=== PATIENT | male | born 1945 | race Caucasian/White ===

== ENCOUNTER 2020-06-06 13:23 | Outpatient (CLI) | payer OTHER, SELFPAY ==
--- NOTE | ~2020-06-06 | MR_ITS ---
EXAMINATION: MR knee LT wo con DATE: 06/06/2020 14:33 INDICATION: Acute onset left knee pain one week post injury with audible pop TECHNIQUE: Magnetic resonance imaging (MRI) of the left knee was performed without intravenous contra st. Sequences included coronal PD-weighted FSE, coronal PD-weighted FS FSE, sagittal T2-weighted FSE , sagittal PD-weighted FS FSE and axial PD weighted fat saturated FSE. COMPARISON: None. FINDINGS: Medial compartment: Longitudinal horizontal tear extending to the inferior articular surface at the mid third of the post erior body and posterior horn of the medial meniscus. A small portion of the posterior body of the me niscus inferior to the tear plane as subluxed couple millimeter caudal into the medial gutter of the medial compartment. Small region of partial-thickness chondral ulceration involving up to 50% the car tilage thickness along the lateral aspect of the central weightbearing medial femoral condyle. Lateral compartment: Small tears of indeterminate morphology, likely complex, one at the body of the lateral meniscus exte nding to contact the cephalad articular surface on a couple contiguous coronal images and additional tear along the anterior third of the posterior horn where there is increased signal contacting the in ferior articular surface as well as no abnormal contour along the anterior free edge suggesting a sma ll mildly displaced flap. Mild partial thickness chondral fissuring at the central to posterior aspec t of the lateral tibial plateau. Cartilage along the lateral femoral condyle appears relatively prese rved. Patellofemoral compartment: Deep chondral ulceration in places likely approaching full-thickness with irregular cortical contour and several foci of subarticular edema at the medial and lateral patellar facets and intervening apic al ridge. Focal small chondral ulceration at the trochlear groove and immediately adjacent medial asp ect of the lateral trochlea which involves approximately 50% the cartilage thickness with no degenera tive subchondral changes. Small region of chondral swelling with heterogeneous cartilage signal at th e inferior aspect of the medial trochlea. Ligaments and tendons: Anterior and posterior cruciate ligaments are normal. Small amount of fluid signal extending along th e periphery of the proximal aspect of the otherwise normal-appearing medial collateral ligament which could represent either reactive edema related to the meniscal tear or low-grade sprain. The fibular collateral ligament complex is normal. Distal quadriceps tendinopathy. The patellar tendon is normal. The visualized medial and lateral hamstring tendons as well as the iliotibial band are normal. Fluid: Physiologic amount of fluid in the joint space. No loose osteochondral bodies identified. Small Robin 's cyst. Osseous/other: Small bone island at the posterior aspect of the medial femoral condyle. No fracture or abnormal raymundo ow replacing process. There is edema at the medial side of the superficial suprapatellar fat pad whic h can be seen with fat pad impingement syndrome. IMPRESSION: 1. Medial and lateral meniscal tears as detailed above. 2. 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 3. Edema along the otherwise normal-appearing medial collateral ligament, both for reactive edema rel ated to medial meniscal tear versus low-grade sprain of the ligament. 4. Edema at the medial side of the suprapatellar fat pad which can be seen with fat pad impingement s yndrome. 5. Small Robin's cyst. Reviewed, dictated and finalized at location A. 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 Medial and lateral m
== END 2020-06-06 13:24 | disposition home or self-care (01) ==
PROVIDERS: Family Provider Internal Medicine; PCP Student in an Organized Health Care Education/Training Program; Visit Provider Student in an Organized Health Care Education/Training Program
DX: S83.282A Other tear of lateral meniscus, current injury, left knee, initial encounter (principal); S83.242A Other tear of medial meniscus, current injury, left knee, initial encounter; X58.XXXA Exposure to other specified factors, initial encounter; M17.12 Unilateral primary osteoarthritis, left knee; M71.22 Synovial cyst of popliteal space [Baker], left knee; R60.0 Localized edema
CPT/HCPCS: 73721

== ENCOUNTER 2020-11-24 10:46 | Emergency (ER) | payer OTHER, SELFPAY ==
--- NOTE | ~2020-11-24 | XR_ITS ---
EXAMINATION: XR lumbar spine 2-3V DATE: 11/24/2020 11:51 INDICATION: Low back pain. TECHNIQUE: 3 views of lumbar spine were obtained. COMPARISON: CT abdomen and pelvis 10/18/2017 FINDINGS: Bone alignment is normal. Vertebral body heights are normal. There is moderately decreased disc height at L3-L4, L4-L5, and L5-S1 with endplate remodeling. There is multilevel severe facet faby nt osteoarthritis in lower lumbar spine. IMPRESSION: 1. Moderate lumbar spondylosis. Reviewed, dictated and finalized at location A.
--- NOTE | ~2020-11-24 | XR_ITS ---
EXAMINATION: XR hip LT min 2V DATE: 11/24/2020 11:51 INDICATION: Left hip pain. TECHNIQUE: 2 views of left hip were obtained. COMPARISON: None. FINDINGS: Bone alignment is normal. No fracture. There is mild left hip osteoarthritis. IMPRESSION: 1. Mild left hip osteoarthritis. Reviewed, dictated and finalized at location A.
[2020-11-24 10:55] VITALS: BP 158/86; PULSE 97; RESP 20; TEMP 36.9; O2SAT 99
--- NOTE | 2020-11-24 11:34 | ED.GENADULT ---
HPI - General Adult General Chief complaint: Back Pain/Injury Stated complaint: LOWER BACK/HIP PAIN Time Seen by Provider: 11/24/20 10:51 Source: patient Mode of arrival: ambulatory Limitations: no limitations History of Present Illness HPI narrative: Patient presents for evaluation of low back and left pain for the last 2 to 3 weeks. He states he has chronic low back pain and was told in the past that he has arthritic changes in the spine. He receives prescriptions for naproxen and hydrocodone which he takes on a regular basis. He states 2 weeks ago he was working on his car and noted worsening pain in left hip and low back thereafter. Pain in both the low back and hip is described as sharp. Pain in the low back is rated 2 out of 10 in severity and left hip 8 out of 10 in severity. He saw his primary care provider through the [facility] yesterday and states that they wanted to perform an MRI on a nonemergent basis. He states that the MRI is not currently working the [facility] and therefore testing will be performed at a later time. She has chronic bilateral lower extremity neuropathy, not worse as of late. No saddle anesthesia or bladder/bowel incontinence. He tried taking naproxen and Dameron for his pain with minimal improvement in symptoms thereafter. Related Data Allergies Allergy/AdvReac Type Severity Reaction Status Date / Time Sulfa (Sulfonamide Allergy Intermediate Rash Verified 11/24/20 10:59 Antibiotics) lisinopril Allergy Unknown Unknown Verified 11/24/20 10:59 sulfamethoxazole Allergy Unknown Unknown Verified 11/24/20 10:59 trimethoprim Allergy Unknown Unknown Verified 11/24/20 10:59 CEPHALEXIN MONOHYDRATE Allergy Unknown Unknown Uncoded 11/24/20 10:59 Review of Systems Review of Systems: Narrative: CONSTITUTIONAL: Denies fever, chills, or sweats. EYES: Denies visual changes, redness, or discharge. ENT: Denies rhinorrhea, congestion, sore throat, or otalgia. CARDIOVASCULAR: Denies chest pain, palpitations, or edema. RESPIRATORY: Denies cough or dyspnea. GASTROINTESTINAL: Denies abdominal pain, nausea, vomiting, or diarrhea. GENITOURINARY: Denies dysuria or hematuria. SKIN: Denies rash or itching. MUSCULOSKELETAL: Reports low back pain and left hip pain. Denies myalgias NEUROLOGIC: Denies headache, numbness, dizziness, or weakness. PSYCHIATRIC: Denies anxiety or depression. [facility] Past Medical History Medical History (Updated 11/24/20 @ 13:15 by Yuri Rosa [facility], ) Chronic low back pain Hypertension Surgical History Surgical History History of carpal tunnel surgery of right wrist Family History Family History Mother No pertinent past medical history Social History Social History (Updated 11/24/20 @ 11:38 by Yuri Rosa [facility], ) Alcohol intake: current Alcohol use details: Rarely Substance use: never Living arrangements: with family Occupation/Education: retired Gender identity (if verbalized by the patient): Male Sexual Orientation (if Verbalized by the Patient): Straight or Heterosexual Spiritual care concerns: No Exam Narrative: Exam Narrative: GENERAL: Well-appearing, well-nourished, and in no acute distress. HEAD: Normocephalic, atraumatic. EYES: PERRLA and EOMI. ENT: Nares clear, no rhinorrhea or epistaxis. Mucous membranes moist. Oropharynx without tonsillar hypertrophy exudate or other lesions. Bilateral TMs pearly rudolph nonbulging NECK: Supple. No adenopathy or masses. No carotid bruits or JVD CHEST: Clear to auscultation. No respiratory distress. No wheezes rales or rhonchi HEART: Regular rate and rhythm. No murmur heard. Normal peripheral pulses. ABDOMEN: Soft, nontender, nondistended, normal active bowel sounds. EXTREMITIES: Tenderness noted over the left hip, left SI joint and diffusely in lumbar spinal region. Normal range of motion. Posi
[2020-11-24] MEDS: CYCLOBENZAPRINE HCL 10 MG TABLET PO (11:40)
[2020-11-24] MEDS: KETOROLAC (*BKC) 60 MG/2 ML VIAL IM (13:29)
[2020-11-24 13:30] VITALS: BP 148/72; PULSE 88; RESP 18; O2SAT 99
== END 2020-11-24 13:32 | disposition home or self-care (01) ==
PROVIDERS: Emergency Provider Nurse Practitioner; PCP Student in an Organized Health Care Education/Training Program
DX: M47.816 Spondylosis without myelopathy or radiculopathy, lumbar region (principal); M16.12 Unilateral primary osteoarthritis, left hip; I10 Essential (primary) hypertension; G89.29 Other chronic pain
CPT/HCPCS: 72100; 73502; 96372; 99284; A9270; J1885

== ENCOUNTER 2021-09-14 13:42 | Emergency (ER) | payer OTHER, SELFPAY ==
--- NOTE | ~2021-09-14 | CT_ITS ---
EXAMINATION: CT abdomen pelvis w con DATE: 09/14/2021 15:45 INDICATION: rlq pain TECHNIQUE: Computed tomography (CT) of the abdomen and pelvis was performed with 100 mL Omnipaque-350 intravenous contrast. Automated exposure control and iterative reconstruction technique were employe d. The dose-length product was 1301.39 mGy-cm. COMPARISON: 10/18/2017 FINDINGS: Lower thorax: Unremarkable. Liver: Scattered cysts. Biliary/Gallbladder: Cholelithiasis. No bile duct dilation. Spleen: Normal. Pancreas: No mass or duct dilation. Adrenals:No mass. Kidneys: Simple right renal cysts. GI tract: No small or large bowel dilation. Appendix not visualized. Mesentery/Peritoneum: No ascites, mass, or free air. Retroperitoneum: No mass. Pelvis: Pelvic organs are within normal limits. Bones/Soft Tissues: Soft tissues and body wall unremarkable. No acute osseous finding. Additional Findings: None. IMPRESSION: No acute abdominopelvic process. Reviewed, dictated and finalized at location K.
[2021-09-14 13:43] VITALS: BP 189/93; PULSE 84; RESP 18; TEMP 36.3; O2SAT 100
--- NOTE | 2021-09-14 14:18 | ED.ABDPAIN ---
HPI - Abdominal Pain General Chief Complaint: Abdominal Pain Stated Complaint: R side pain, dark stoold Time Seen by Provider: 09/14/21 14:04 History of Present Illness HPI narrative: pt comes in with over a month of rlq/flank and r low back pain daily with some dk brown spots in stool after some initial straining due to hard dry stool. says taking fiber got them softer. no blood or black stools, had scope 3 yrs ago [facility] polyps and diverticuli no family h/o colon cancer. pt says no meds for pain no urine chagnes no f/truama/cp/sob/neuro chagnes/v andno diarrhea. no hemerrhoids. only abd surgery in appy Related Data Allergies Allergy/AdvReac Type Severity Reaction Status Date / Time Sulfa (Sulfonamide Allergy Intermediate Rash Verified 11/24/20 10:59 Antibiotics) lisinopril Allergy Unknown Unknown Verified 11/24/20 10:59 sulfamethoxazole Allergy Unknown Unknown Verified 11/24/20 10:59 trimethoprim Allergy Unknown Unknown Verified 11/24/20 10:59 CEPHALEXIN MONOHYDRATE Allergy Unknown Unknown Uncoded 11/24/20 10:59 Review of Systems Review of Systems: CONSTITUTIONAL: Denies fever, chills, or sweats. EYES: Denies visual changes, redness, or discharge. ENT: Denies rhinorrhea, congestion, sore throat, or otalgia. CARDIOVASCULAR: Denies chest pain, palpitations, or edema. RESPIRATORY: Denies cough or dyspnea. GASTROINTESTINAL: nausea, vomiting, or diarrhea. GENITOURINARY: Denies dysuria or hematuria. SKIN: Denies rash or itching. MUSCULOSKELETAL: Denies back pain except r lower back that is only associated with his rlq abd pain, joint pain, or myalgia. NEUROLOGIC: Denies headache, numbness, or weakness. PSYCHIATRIC: Denies anxiety or depression. 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 Head normocephalic atraumtaic. EYES: PERRLA/EOMI, conjunctivae very clear. NOSE: Normal no drainage EARS:TMS clear Nicolasa Cardenas, with good light reflex. THROAT: Pharynx clear, no exudate. NECK: Supple. No adenopathy, no masses. RESPIRATORY: Airway patent, repsirations nonlabored. Clear to auscultation bilaterally, no rales, rhonchi, wheezing. CARDIOVASCULAR: Regular rate and rhythm without murmurs rubs or gallops. ABDOMINAL: Soft, tend rlq no r/g nondistended, no hepatosplenomegally no hemorrhoids and br stool hemocult neg at bedside MUSCULOSKELETAl: Moves all extremities. Strenght/ROM intact, No edema, No calf tenderness. NEURO: Alert. Cranial nerves II through XII intact. Good gait. Good coordination SKIN:: Warm, dry. Normal Color PSYCHIATRIC: Normal affect/mood, normal interaction with parents. Course Reevaluation(s) Reevaluation #1: updated pt at 1608 on all results good wiht plan for home outpt f/u and adding flexeril to tylenol motrin for pain Vital Signs Vital signs: Vital Signs Temperature 36.3 C L 09/14/21 13:43 Pulse Rate 84 09/14/21 13:43 Respiratory Rate 18 09/14/21 13:43 Blood Pressure 189/93 H 09/14/21 13:43 Pulse Oximetry 100 09/14/21 13:43 Temperature 36.3 C L 09/14/21 13:43 Pulse Rate 84 09/14/21 13:43 Respiratory Rate 18 09/14/21 13:43 Blood Pressure 189/93 H 09/14/21 13:43 Pulse Oximetry 100 09/14/21 13:43
[2021-09-14 14:56] LABS: Basophils Percent Auto 0.3 % (0.2-1.2); Eosinophils Absolute Auto 0.2 K/mm3 (0-0.3); Eosinophils Percent Auto 2.7 % (0-4.4); Hematocrit 39.3 % (42.0-52.0); Hemoglobin 13.1 g/dL (14.0-18.0); Immature Granulocyte Absolute 0.02 K/mm3 (0.00-0.031); Immature Granulocyte Percent A 0.3 % (0-0.5); Lymphocytes Absolute Auto 1.26 K/mm3 (0.9-3.2); Lymphocytes Percent Auto 20.1 % (18.3-44.2); Mean Corpuscular HGB Conc 33.3 g/dl (32-36); Mean Corpuscular Hemoglobin 30.5 pg (26-34); Mean Corpuscular Volume 91.4 fl (80-100); Monocytes Absolute Auto 0.5 K/mm3 (0.1-0.6); Monocytes Percent Auto 7.5 % (2.6-8.5); Neutrophils Absolute Auto 4.3 K/mm3 (1.3-6.7); Neutrophils Percent Auto 69.1 % (45.5-73.1); Platelet Count Result 145 k/mm3 (150-375); Red Cell Distribution Width 13.3 % (11.5-14.5); White Blood Count 6.3 K/mm3 (4.5-10.0)
[2021-09-14 15:05] LABS: Alanine Aminotransferase 29 U/L (4-50); Albumin Level 4.2 g/dL (3.5-5.1); Alkaline Phosphatase 62 U/L (38-126); Anion Gap 6 mmol/L (8-16); Aspartate Amino Transferase 40 U/L (17-59); Bilirubin,Total 0.6 mg/dL (0.2-1.3); Blood Urea Nitrogen 10 mg/dL (9-20); Calcium 8.8 mg/dL (8.4-10.2); Carbon Dioxide 28 mmol/L (22-30); Chloride 105 mmol/L (98-107); Estimated CRCL calculation 88 ml/min; Estimated Glomerular Filt Rate > 60; Glucose 95 mg/dL (65-110); Potassium 4.2 mmol/L (3.4-5.0); Sodium 139 mmol/L (137-145)
[2021-09-14 15:11] LABS: Add Urine Microscopic? YES; Appearance Urine Cloudy (Clear); Bilirubin Urine Negative (Negative); Blood Urine Negative (Negative); Color Urine Yellow (Yellow); Glucose Urine UA Negative (Negative); Ketones Urine Negative (Negative); Leukocyte Esterase Ur Negative LEU/UL (Negative); Mucus Urine Rare /lpf; Nitrate Urine Negative (Negative); Protein Urine Negative (Negative); RBC Urine 0-2 /hpf (0-2); Specific Grav Ur 1.009 (1.001-1.035); Squamous Epithelial Cell Urine Rare /hpf (Few); Urobilinogen Urine Negative mg/dL (<2.0)
[2021-09-14] MEDS: ONDANSETRON INJ 4 MG/2 ML VIAL IV PUSH (15:28)
[2021-09-14] MEDS: fentaNYL CITRATE INJ (*CRX) 100 MCG/2 ML VIAL 50 MCG IV PUSH (15:50)
[2021-09-14 16:29] VITALS: BP 130/70; PULSE 66; RESP 16; O2SAT 100
== END 2021-09-14 16:31 | disposition home or self-care (01) ==
PROVIDERS: Emergency Provider Emergency Medicine; PCP Student in an Organized Health Care Education/Training Program
DX: R10.9 Unspecified abdominal pain (principal); I10 Essential (primary) hypertension
CPT/HCPCS: 36415; 74177; 80053; 81001; 85025; 96374; 96375; 99284; J2405; J3010; Q9967

== ENCOUNTER 2021-11-08 10:12 | Emergency (ER) | payer OTHER, SELFPAY ==
--- NOTE | ~2021-11-08 | US_ITS ---
EXAMINATION: US venous doppler UE RT DATE: 11/08/2021 11:54 INDICATION: Right upper limb pain and swelling TECHNIQUE: Grayscale images without and with compression and Doppler images of the right upper extrem ity veins were obtained. COMPARISON: None. FINDINGS: The right internal jugular vein, subclavian vein, axillary vein, brachial vein, basilic vein, cephali c vein, radial vein, and ulnar vein are patent. IMPRESSION: 1. Patent right upper extremity veins. No evidence of venous thrombosis. Reviewed, dictated and finalized at location B.
--- NOTE | ~2021-11-08 | XR_ITS ---
EXAMINATION: XR shoulder RT min 2V DATE: 11/08/2021 11:50 INDICATION: Right shoulder pain and decreased range of motion TECHNIQUE: AP internally and externally rotated, AP oblique externally rotated and transscapular Y vi ews of the right shoulder were obtained. COMPARISON: None FINDINGS: Normal alignment. No fracture.Moderate osteoarthritis at the right acromioclavicular and glenohumera l joints. Mild erosive changes seen along the greater tuberosity which can be seen with rotator cuff disease. Visualized portion of the right lung is clear. Soft tissues are unremarkable. IMPRESSION: 1. Moderate right acromioclavicular and glenohumeral osteoarthritis. 2. Mild erosive change along the greater tuberosity which can be seen with rotator cuff disease. Reviewed, dictated and finalized at location B. IMPRESSION: 1. Moderate right acromioclavicular and glenohumeral osteoarthritis. 2. Mild erosive change along the greater tuberosity which can be seen with rota tor cuff disease.
[2021-11-08 10:16] VITALS: BP 150/110; PULSE 91; RESP 18; TEMP 36.8; O2SAT 99
[2021-11-08] MEDS: MORPHINE SULFATE (*CRX) 4 MG/ML INJ IV PUSH (11:19)
[2021-11-08 11:27] LABS: Basophils Percent Auto 0.5 % (0.2-1.2); Eosinophils Absolute Auto 0.2 K/mm3 (0-0.3); Eosinophils Percent Auto 3.1 % (0-4.4); Hematocrit 40.5 % (42.0-52.0); Hemoglobin 13.7 g/dL (14.0-18.0); Immature Granulocyte Absolute 0.03 K/mm3 (0.00-0.031); Immature Granulocyte Percent A 0.5 % (0-0.5); Lymphocytes Absolute Auto 1.57 K/mm3 (0.9-3.2); Lymphocytes Percent Auto 24.1 % (18.3-44.2); Mean Corpuscular HGB Conc 33.8 g/dl (32-36); Mean Corpuscular Hemoglobin 30.2 pg (26-34); Mean Corpuscular Volume 89.2 fl (80-100); Mean Platelet Volume 8.5 fl (7.4-10.4); Monocytes Absolute Auto 0.5 K/mm3 (0.1-0.6); Monocytes Percent Auto 8.1 % (2.6-8.5); Neutrophils Absolute Auto 4.2 K/mm3 (1.3-6.7); Neutrophils Percent Auto 63.7 % (45.5-73.1); Platelet Count Result 149 k/mm3 (150-375); Red Blood Count 4.54 M/mm3 (4.6-6.20); Red Cell Distribution Width 13.5 % (11.5-14.5); White Blood Count 6.5 K/mm3 (4.5-10.0)
[2021-11-08 12:00] LABS: Anion Gap 5 mmol/L (8-16); Blood Urea Nitrogen 13 mg/dL (9-20); Calcium 8.7 mg/dL (8.4-10.2); Carbon Dioxide 27 mmol/L (22-30); Chloride 105 mmol/L (98-107); Creatine Kinase 106 U/L (55-170); Estimated CRCL calculation 90 ml/min; Estimated Glomerular Filt Rate > 60; Glucose 108 mg/dL (65-110); Potassium 4.3 mmol/L (3.4-5.0); Sodium 137 mmol/L (137-145)
--- NOTE | 2021-11-08 12:51 | ED.UPPEXIN ---
HPI - Extremity Injury (Upper) General Chief Complaint: Extremity Injury, Upper Stated Complaint: right shoulder pain Time Seen by Provider: 11/08/21 10:56 History of Present Illness HPI narrative: Patient is a 76-year-old male who presents ER with right shoulder pain. Ongoing over the last couple days. Reports he was in his garage working on an old truck and was doing lots of screwing and was laying on his side. He has had increased pain and difficulty lifting his arm since then. He feels like his arm is swollen as well. No chest pain or difficulty breathing. No fevers chills or sweats. Has tingling going down into his hand. No alleviating factors. Related Data Allergies Allergy/AdvReac Type Severity Reaction Status Date / Time Sulfa (Sulfonamide Allergy Intermediate Rash Verified 11/08/21 11:02 Antibiotics) lisinopril Allergy Unknown Unknown Verified 11/08/21 11:02 sulfamethoxazole Allergy Unknown Unknown Verified 11/08/21 11:02 trimethoprim Allergy Unknown Unknown Verified 11/08/21 11:02 CEPHALEXIN MONOHYDRATE Allergy Unknown Unknown Uncoded 11/08/21 11:02 Review of Systems Review of Systems: All systems reviewed & are unremarkable except as noted in HPI and below Constitutional: Constitutional: Denies chills and Denies fever(s) ENT: Denies nasal congestion and Denies sore throat Cardiovascular: Cardiovascular: Denies chest pain, Denies rapid heart rate and Denies radiating jaw, neck or arm pain Respiratory: Respiratory: Denies cough and Denies dyspnea Musculoskeletal: Musculoskeletal: Reports arthralgias, Denies joint swelling and Denies muscle cramps Neurologic: Denies headache(s), Denies focal weakness and Reports numbness PMFSH Past Medical History Medical History (Updated 11/08/21 @ 13:13 by Alejandro Newsome MD) Chronic low back pain Hypertension Surgical History Surgical History History of carpal tunnel surgery of right wrist Family History Family History Mother No pertinent past medical history Social History Social History (Updated 11/24/20 @ 11:38 by FRAN Morales, BC) Alcohol intake: current Alcohol use details: Rarely Substance use: never Gender identity (if verbalized by the patient): Male Sexual Orientation (if Verbalized by the Patient): Straight or Heterosexual Spiritual care concerns: No Exam Narrative: GENERAL: Well-appearing, well-nourished, and in no acute distress. HEAD: Normocephalic, atraumatic. CHEST: Clear to auscultation. No respiratory distress. HEART: Regular rate and rhythm. Normal peripheral pulses. EXTREMITIES: Focused exam of the right shoulder reveals increased pain with external rotation and with reaching back towards his back which she cannot do. He has significant pain with forward flexion of the shoulder as well as abduction. SKIN: Warm, dry, no rash. NEURO: Alert and oriented x3. PSYCH: Normal mood and affect. Course Course Emergency Course: Patient informed of results. Recommend anti-inflammatories was as well as ice and rest. Will give orthopedic surgery referral. Vital Signs Vital signs: Vital Signs Temperature 98.2 F 11/08/21 10:16 Pulse Rate 91 11/08/21 10:16 Respiratory Rate 18 11/08/21 10:16 Blood Pressure 150/110 H 11/08/21 10:16 Pulse Oximetry 99 11/08/21 10:16 Oxygen Delivery Room Air 11/08/21 10:16 Temperature 98.2 F 11/08/21 10:16 Pulse Rate 80 11/08/21 13:10 Respiratory Rate 18 11/08/21 13:10 Blood Pressure 133/85 11/08/21 13:10 Pulse Oximetry 97 11/08/21 13:10 Oxygen Delivery Room Air 11/08/21 10:16 MDM - Extremity Injury (Upper) Lab Data Result diagrams: 11/08/21 11:18 11/08/21 11:18 Labs: Lab Results 11/08/21 11/08/21 Range/Units 11:18 11:18 WBC 6.5 (4.5-10.0) K/mm3 RBC 4.54 L (4.6-6.20
[2021-11-08] MEDS: ONDANSETRON INJ 4 MG/2 ML VIAL IV PUSH (13:07)
[2021-11-08 13:10] VITALS: BP 133/85; PULSE 80; RESP 18; O2SAT 97
== END 2021-11-08 14:12 | disposition home or self-care (01) ==
PROVIDERS: Emergency Provider Emergency Medicine; PCP Student in an Organized Health Care Education/Training Program
DX: M75.101 Unspecified rotator cuff tear or rupture of right shoulder, not specified as traumatic (principal); I10 Essential (primary) hypertension; M19.011 Primary osteoarthritis, right shoulder; M79.89 Other specified soft tissue disorders
CPT/HCPCS: 36415; 73030; 80048; 82550; 85025; 93971; 96374; 96375; 99284; J2270; J2405

== ENCOUNTER 2022-11-03 14:44 | Emergency (ER) | payer OTHER, SELFPAY ==
--- NOTE | ~2022-11-03 | XR_ITS ---
EXAM: XR foot RT min 3V DATE: 11/03/2022 15:35 HISTORY: NO KNOWN INJURY, PLANTAR PAIN, SWELLING . COMPARISON: None available. FINDINGS: Normal mineralization. No fracture or dislocation. No lytic or blastic lesion. Mild degene rative changes at the first MTP joint, first interphalangeal joint, and multiple midfoot joints. Plan tar enthesopathy. No erosion or periosteal change. Soft tissues within normal limits. IMPRESSION: Mild polyarticular osteoarthritis of the right foot. Plantar enthesopathy. Reviewed, dictated and finalized at location K. IMPRESSION: Mild polyarticular osteoarthritis of the right foot. Plantar enthes opathy.
[2022-11-03 15:15] VITALS: BP 184/86; PULSE 80; RESP 12; TEMP 36.9; O2SAT 97
--- NOTE | 2022-11-03 16:37 | ED.LOWEXIN ---
HPI - Extremity Injury (Lower) General Chief Complaint: Extremity Injury, Lower Stated Complaint: Right Foot Pain Time Seen by Provider: 11/03/22 16:38 Source: patient Mode of arrival: ambulatory Limitations: no limitations History of Present Illness HPI Narrative: 77-year-old male presented for complaint of right foot pain today. Endorses a history of intermittent chronic foot pain, but states today it has worsened it has ever been. Pain is worse at the ball of the foot, described as sharp and tingling. Tender with touch. He has not taken anything for pain. He denies decreased range of motion, numbness, weakness. Patient has been wearing a toe splint for hammer toe on both feet for a few days which he purchased online. Related Data Home Medications Medication Instructions Recorded Confirmed amlodipine 10 mg tablet 10 mg PO DAILY 11/03/22 11/03/22 aspirin 81 mg tablet,delayed 81 mg PO DAILY 11/03/22 11/03/22 release atorvastatin 40 mg tablet 40 mg PO DAILY 11/03/22 11/03/22 fluticasone propionate 50 2 spray intranasal DIRECTED 11/03/22 11/03/22 mcg/actuation nasal spray,suspension terazosin 5 mg capsule 10 mg PO DAILY 11/03/22 11/03/22 Allergies Allergy/AdvReac Type Severity Reaction Status Date / Time Sulfa (Sulfonamide Allergy Intermediate Rash Verified 11/08/21 11:02 Antibiotics) lisinopril Allergy Unknown Unknown Verified 11/08/21 11:02 sulfamethoxazole Allergy Unknown Unknown Verified 11/08/21 11:02 trimethoprim Allergy Unknown Unknown Verified 11/08/21 11:02 CEPHALEXIN MONOHYDRATE Allergy Unknown Unknown Uncoded 11/08/21 11:02 Review of Systems Review of Systems: CONSTITUTIONAL: Denies body aches, fever, chills EYES: Denies visual changes ENT: Denies rhinorrhea, congestion CARDIOVASCULAR: Denies chest pain, palpitations, or edema. RESPIRATORY: Denies cough or dyspnea. GASTROINTESTINAL: Denies abdominal pain, nausea, vomiting, or diarrhea. SKIN: Denies rash, itching, or wounds. MUSCULOSKELETAL:per HPI NEUROLOGIC: Denies headache, numbness, tingling, or weakness. All systems reviewed & are unremarkable except as noted in HPI and below PMFSH Past Medical History Medical History Chronic low back pain Hypertension Surgical History Surgical History History of carpal tunnel surgery of right wrist Family History Family History Mother No pertinent past medical history Social History Social History Alcohol intake: current Alcohol use details: Rarely Substance use: never Living arrangements: with family Occupation/Education: retired Gender identity (if verbalized by the patient): Male Sexual Orientation (if Verbalized by the Patient): Straight or Heterosexual Spiritual care concerns: No Comments At time of signature, I have reviewed and agree with nursing past medical, surgical, social and family history unless otherwise noted. Please see nursing chart for further information. There is no relevant family history pertinent to the presenting complaint Exam Narrative: GENERAL: Well-appearing, well-nourished, and in no acute distress. HEAD: Normocephalic, atraumatic. CHEST: Speaks in full sentences. No respiratory distress. HEART: Regular rate and rhythm. Normal and equal peripheral pulses. EXTREMITIES: Right plantar soldering machine tender to palpation at the ball of the foot, Right foot has normal strength and sensation, normal range of motion. 2+ bilateral ankle swelling, 1+ pedal swelling. No open wounds or obvious deformity; pulse palpable and equal bilaterally, skin warm, dry, pink. Capillary refill less than 3 seconds. SKIN: Warm, dry, no rash. NEURO: Alert and oriented x3. PSYCH: Normal mood and affect Course Course Emergency Cour
== END 2022-11-03 16:58 | disposition home or self-care (01) ==
PROVIDERS: Emergency Provider Nurse Practitioner Family; PCP Student in an Organized Health Care Education/Training Program
DX: M79.671 Pain in right foot (principal); I10 Essential (primary) hypertension; Z79.82 Long term (current) use of aspirin
CPT/HCPCS: 73630; 99213; G0463

== ENCOUNTER 2022-12-30 09:22 | Emergency (ER) | payer OTHER, SELFPAY ==
--- NOTE | 2022-12-30 09:25 | ED.GENADULT ---
HPI - General Adult General Chief complaint: Upper Respiratory Infection Stated complaint: Left Side Face Pain Time Seen by Provider: 12/30/22 09:30 Source: patient, RN notes reviewed and old records reviewed Mode of arrival: ambulatory Limitations: no limitations History of Present Illness HPI narrative: 77-year-old male presents to the [facility] with complaints of left jaw pain when he chews. Started 3 days ago. Patient states that he woke up 3 days ago and it felt like his teeth are not lining up was having clicking and popping in the left jaw. Has taken Tylenol and ibuprofen with improvement. States as long as he is not eating anything hard the pain is not bad and has been improving. Denies any ear pain. Denies any chest pain or shortness of breath. No nausea vomiting or diarrhea. Onset (ago): day(s) (3) Associated symptoms: other (Chewing) Treatments prior to arrival: NSAID Related Data Home Medications Medication Instructions Recorded Confirmed amlodipine 10 mg tablet 10 mg PO DAILY 11/03/22 12/30/22 aspirin 81 mg tablet,delayed 81 mg PO DAILY 11/03/22 12/30/22 release atorvastatin 40 mg tablet 40 mg PO DAILY 11/03/22 12/30/22 fluticasone propionate 50 2 spray intranasal DIRECTED 11/03/22 12/30/22 mcg/actuation nasal spray,suspension terazosin 5 mg capsule 10 mg PO DAILY 11/03/22 12/30/22 Allergies Allergy/AdvReac Type Severity Reaction Status Date / Time Sulfa (Sulfonamide Allergy Intermediate Rash Verified 12/30/22 09:32 Antibiotics) lisinopril Allergy Unknown Unknown Verified 12/30/22 09:32 sulfamethoxazole Allergy Unknown Unknown Verified 12/30/22 09:32 trimethoprim Allergy Unknown Unknown Verified 12/30/22 09:32 CEPHALEXIN MONOHYDRATE Allergy Unknown Unknown Uncoded 12/30/22 09:32 Review of Systems Review of Systems: All systems reviewed & are unremarkable except as noted in HPI and below Constitutional: Constitutional: Reports no additional constitutional complaints Eyes: Eyes: Reports no additional eye complaints ENT: Reports as per HPI Cardiovascular: Cardiovascular: Reports no additional cardiovascular complaints, Denies chest pain and Denies dyspnea Respiratory: Respiratory: Reports no additional respiratory complaints, Denies chest congestion, Denies cough and Denies dyspnea Gastrointestinal: Gastrointestinal: Reports no additional gastrointestinal complaints, Denies abdominal pain, Denies nausea and Denies vomiting Musculoskeletal: Musculoskeletal: Reports no additional musculoskeletal complaints Integumentary/Breasts: Skin/Breast: Reports system reviewed and no additional complaints, except as docu Neurologic: Reports system reviewed and no additional complaints, except as documented Psychiatric: Psychiatric: Reports no additional psychiatric complaints Allergic/Immunologic: Allergic/Immunologic: Reports no additional allergic/immunologic complaints PMFSH Past Medical History Medical History Chronic low back pain Hypertension Surgical History Surgical History History of carpal tunnel surgery of right wrist Family History Family History Mother No pertinent past medical history Social History Social History Alcohol intake: current Alcohol use details: Rarely Substance use: never Living arrangements: with family Occupation/Education: retired Gender identity (if verbalized by the patient): Male Sexual Orientation (if Verbalized by the Patient): Straight or Heterosexual Spiritual care concerns: No Comments At the time of my signature, I reviewed and agree with the nursing past medical, surgical, social, and family history. There is no relevant family history pertinent to the patient complaint. Exam Const: General: cooperat
[2022-12-30 09:32] VITALS: BP 164/77; PULSE 81; RESP 16; TEMP 37.3; O2SAT 98
[2022-12-30 09:33] VITALS: BP 164/77; PULSE 81; RESP 16; TEMP 37.3; O2SAT 98
== END 2022-12-30 09:49 | disposition home or self-care (01) ==
PROVIDERS: Emergency Provider Nurse Practitioner; PCP Student in an Organized Health Care Education/Training Program
DX: M26.602 Left temporomandibular joint disorder, unspecified (principal); I10 Essential (primary) hypertension
CPT/HCPCS: 99213; G0463

== ENCOUNTER 2023-08-04 13:46 | Emergency (ER) | payer OTHER, SELFPAY ==
--- NOTE | ~2023-08-04 | XR_ITS ---
Left Knee Technique: AP, lateral, and oblique views were obtained. Clinical History: Pain Findings: No fracture or dislocation is seen. Osseous alignment is anatomic. Joint spaces are preserv ed without degenerative or erosive change. Soft tissues are unremarkable. No joint effusion is seen. Impression: Unremarkable left knee radiographs. Reviewed, dictated and finalized at [facility]. Impression: Unremarkable left knee radiographs.
[2023-08-04 13:56] VITALS: BP 175/80; PULSE 80; RESP 18; TEMP 36.4; O2SAT 100
--- NOTE | 2023-08-04 15:52 | ED.GENADULT ---
HPI - General Adult General Chief complaint: Extremity Injury, Lower Stated complaint: left leg pain Time Seen by Provider: 08/04/23 14:55 History of Present Illness HPI narrative: 77-year-old male present to the emergency department for evaluation of left knee pain. Patient reports last February he did have an injury to his left knee. Patient reports he re-injured his left knee on 's Day when he tripped over a stump in his yd. Patient does report medial left knee pain that is worsened with ambulation. Related Data Home Medications Medication Instructions Recorded Confirmed amlodipine 10 mg tablet 10 mg PO DAILY 11/03/22 12/30/22 aspirin 81 mg tablet,delayed 81 mg PO DAILY 11/03/22 12/30/22 release atorvastatin 40 mg tablet 40 mg PO DAILY 11/03/22 12/30/22 fluticasone propionate 50 2 spray intranasal DIRECTED 11/03/22 12/30/22 mcg/actuation nasal spray,suspension terazosin 5 mg capsule 10 mg PO DAILY 11/03/22 12/30/22 Allergies Allergy/AdvReac Type Severity Reaction Status Date / Time Sulfa (Sulfonamide Allergy Intermediate Rash Verified 08/04/23 14:04 Antibiotics) lisinopril Allergy Unknown Unknown Verified 08/04/23 14:04 sulfamethoxazole Allergy Unknown Unknown Verified 08/04/23 14:04 trimethoprim Allergy Unknown Unknown Verified 08/04/23 14:04 CEPHALEXIN MONOHYDRATE Allergy Unknown Unknown Uncoded 08/04/23 14:04 Review of Systems Review of Systems: All systems reviewed & are unremarkable except as noted in HPI and below PMFSH Past Medical History Medical History Chronic low back pain Hypertension Surgical History Surgical History History of carpal tunnel surgery of right wrist Family History Family History Mother No pertinent past medical history Social History Social History Alcohol intake: current Alcohol use details: Rarely Substance use: never Living arrangements: with family Occupation/Education: retired Gender identity (if verbalized by the patient): Male Sexual Orientation (if Verbalized by the Patient): Straight or Heterosexual Spiritual care concerns: No Exam Narrative: APPEARANCE: Well appearing, no pain, no distress, well-nourished. HEAD: normocephalic, atraumatic. EYES: PERRLA/EOMI, conjunctivae clear. NECK: Supple. No adenopathy, no masses. RESPIRATORY: Airway patent, respirations nonlabored. Clear to auscultation bilaterally, no rales, rhonchi, wheezing. CARDIOVASCULAR: Regular rate and rhythm without murmurs rubs or gallops. ABDOMINAL: Soft, nontender, nondistended, normal bowel sounds MUSCULOSKELETAL: Moves all extremities. Strength/ROM intact, No edema, No calf tenderness. NEURO: Alert. Cranial nerves II through XII intact. Grossly intact SKIN: Warm, dry. Normal Color Course Course Emergency Course: Patient was provided knee immobilizer and crutches for limited weight-bearing. Vital Signs Vital signs: Vital Signs Temperature 97.6 F 08/04/23 13:56 Pulse Rate 80 08/04/23 13:56 Respiratory Rate 18 08/04/23 13:56 Blood Pressure 175/80 H 08/04/23 13:56 Pulse Oximetry 100 08/04/23 13:56 Oxygen Delivery Room Air 08/04/23 13:56 Temperature 97.6 F 08/04/23 13:56 Pulse Rate 80 08/04/23 13:56 Respiratory Rate 18 08/04/23 13:56 Blood Pressure 175/80 H 08/04/23 13:56 Pulse Oximetry 100 08/04/23 13:56 Oxygen Delivery Room Air 08/04/23 13:56 Medical Decision Making MDM Narrative Medical decision making narrative: 77-year-old male presenting ED for evaluation of left knee pain. X-rays were negative for acute fractures or dislocation. Patient was provided a knee immobilizer for comfort and patient states he will use a walker for limited weight-bearing at home. Patient
== END 2023-08-04 16:10 | disposition home or self-care (01) ==
PROVIDERS: Emergency Provider Emergency Medicine; PCP Student in an Organized Health Care Education/Training Program
DX: M25.562 Pain in left knee (principal); I10 Essential (primary) hypertension; Z79.82 Long term (current) use of aspirin
CPT/HCPCS: 73564; 99283

== ENCOUNTER 2024-06-26 12:14 | Emergency (ER) | payer OTHER, SELFPAY ==
[2024-06-26 12:30] VITALS: BP 147/84; PULSE 75; RESP 16; TEMP 36.7; O2SAT 99
--- NOTE | 2024-06-26 12:58 | ED_ITS ---
HPI - URI/Sore Throat General Chief Complaint: Upper Respiratory Infection Stated Complaint: sneezing,sore throat,body sore Time Seen by Provider: 06/26/24 12:45 Source: patient Mode of arrival: ambulatory Limitations: no limitations History of Present Illness HPI Narrative: Austin is a 78-year-old male patient presenting to the clinic today with complaints of sneezing, cough, sore throat, and body aches times 3 days. He denies any shortness of breath or chest pain. No known fever or chills. MD elicited complaint: cough, sore throat and nasal congestion Related Data Home Medications ?Medication ?Instructions ?Recorded ?Confirmed ?Last Taken ?Type amlodipine 10 mg tablet 10 mg PO DAILY 11/03/22 06/26/24 Unknown History aspirin 81 mg tablet,delayed 81 mg PO DAILY 11/03/22 06/26/24 Unknown History release atorvastatin 40 mg tablet 40 mg PO DAILY 11/03/22 06/26/24 Unknown History fluticasone propionate 50 2 spray intranasal DIRECTED 11/03/22 06/26/24 Unknown History mcg/actuation nasal spray,suspension terazosin 5 mg capsule 10 mg PO DAILY 11/03/22 06/26/24 Unknown History losartan 100 mg tablet 100 mg PO DAILY 06/26/24 06/26/24 Unknown History Allergies Allergy/AdvReac Type Severity Reaction Status Date / Time Sulfa (Sulfonamide Allergy Intermediate Rash Verified 06/26/24 12:22 Antibiotics) lisinopril Allergy Unknown Unknown Verified 06/26/24 12:22 sulfamethoxazole Allergy Unknown Unknown Verified 06/26/24 12:22 trimethoprim Allergy Unknown Unknown Verified 06/26/24 12:22 CEPHALEXIN MONOHYDRATE Allergy Unknown Unknown Uncoded 06/26/24 12:22 Review of Systems Review of Systems: Pertinent positives per HPI. Patient denies any fever, chills, rash, headache, visual changes, dizziness, shortness of breath, chest pain, palpitations, nause a, vomiting, diarrhea, constipation, abdominal pain, or any urinary issues. COUNTS INCLUDE 234 BEDS AT THE [facility] Past Medical History Medical History Chronic low back pain Hypertension Surgical History Surgical History History of carpal tunnel surgery of right wrist Family History Family History Mother No pertinent past medical history Social History Social History Alcohol intake: current Alcohol use details: Rarely Substance use: never Living arrangements: with family Occupation/Education: retired Gender identity (if verbalized by the patient): Male Sexual Orientation (if Verbalized by the Patient): Straight or Heterosexual Spiritual care concerns: No Comments At the time of my signature, I reviewed and agree with the nursing past medical, surgical, social, and family history. There is no relevant family history pertinent to the patient complaint. Exam Narrative: General: Well-developed, well nourished, in no apparent distress Head: Normocephalic, atraumatic Eyes: Pupils equally round and reactive to light bilaterally, EOM intact, sclera and conjunctive clear, no discharge, lids normal Ears: TMs intact and clear, ear canals clear, no drainage, grossly hearing normal. Nose: Nares patent, clear nasal discharge, mild inflammation, no sinus tenderness. Mouth: Oral pharynx without lesions or masses, good dentition, MMM. Neck: Supple, trachea midline, no enlargement of anterior or posterior cervical nodes, no thyroid masses or goiter palpable. Cardio: Regular rate and rhythm, s1 and s2 normal, no murmur appreciated. Resp: Clear to auscultation bilaterally, no rhonchi, rales, wheezing or rubs Course Course Emergency Course: Portions of this record may have been created with voice recognition software. Level of Care: Express Care Visit Vital Signs Vital signs: Vital Signs Temperature 36.7 C 06/26/24 12:30 Pulse Rate 75 06/26/24 12:30 Respiratory Rate 16 06/26/24 12:30 Blood Pressure 147/84 H 06/26/24 12:30 Pulse Oximetry 99 06/26/24 12:30 Oxygen Delivery Room Air 06/26/24 12:30 Temperature 36.7 C 06/26/24 12:30 Pulse Rate 75 06/26/24 12:30 Respiratory Rate 16 06/26/24 12:30 Blood Pressure 147/84 H 06/26/24 12:30 Pulse Oximetry 99 06/26/24 12:30 Oxygen Delivery Room Air 06/26/24 12:30 Vital signs reviewed MDM - URI/Sore Throat MDM Narrative Medical decision making narrative: At the time of visit patient is resting comfortably on the exam table. Patient appears to be nontoxic. Labs: COVID and influenza testing was performed and was negative in the clinic today. Plan: I suspect patient has URI/pharyngitis/viral syndrome. Supportive measures were discussed with the patient and they voiced understanding discharge instructions and agrees to treatment plan. Return precautions reviewed Differential Diagnosis Differential diagnosis: Likely upper respiratory infection, otitis media, sinusitis, viral infection, bronchitis, influenza, pharyngitis and other (COVID) Discharge Plan Discharge Clinical Impression: Viral infection Upper respiratory infection Qualifiers: URI type: unspecified URI Qualified Code(s): J06.9 - Acute upper respiratory infection, unspecified Pharyngitis Qualifiers: Pharyngitis/tonsillitis etiology: unspecified etiology Qualified Code(s): J02.9 - Acute pharyngitis, unspecified Patient Disposition: Home, Self-Care Condition: Stable Instructions: Antibiotic Form, Pharyngitis (ED), Viral Syndrome (ED), Cold Symptoms (ED) Additional Instructions: COVID and influenza testing was negative in the clinic today. May take Coricidin HBP for cold/flu symptoms Increase fluids and stay well hydrated Tylenol/motrin for pain/fever Flonase and OTC antihistamines as directed Vicks vapor rub to open sinuses Sinus rinses for congestion Cepacol spray, cough drops, throat lozenges, warm tea with honey/lemon, gargle salt water to soothe throat BRAT diet for diarrhea Clear liquids x 24 hours then advance as tolerated for nausea/vomiting Go to the ED if you develop a worsening in your condition- high fever not controlled by Tylenol or Motrin, dehydration, weakness, lethargy, shortness of breath, or chest pain. Follow up with your PCP in 3-5 days if symptoms persist. Patient Language: Kazakh Prescriptions: No Action terazosin 5 mg capsule 10 mg PO DAILY atorvastatin 40 mg tablet 40 mg PO DAILY aspirin 81 mg tablet,delayed release (DR/EC) 81 mg PO DAILY amlodipine 10 mg tablet 10 mg PO DAILY fluticasone propionate 50 mcg/actuation spray,suspension 2 spray INTRANASAL DIRECTED ibuprofen 800 mg tablet 800 mg PO TID PRN (Reason: pain) Qty: 12 0RF losartan 100 mg tablet 100 mg PO DAILY hydrocodone-acetaminophen 5-325 mg tablet 1 tablet PO Q8H PRN (Reason: pain) Qty: 14 0RF Follow-up/Referrals: Melvi,DO Liang [Primary Care Provider] - Time of Disposition: 13:13 Quality NIHSS Nursing Documentation ED NIHSS nursing documentation: reviewed/agree
[2024-06-26 13:14] LABS: EDCOVIDSCREEN Negative (Negative); EDINFLUASCREEN Negative (Negative); EDINFLUBSCREEN Negative (Negative)
== END 2024-06-26 13:18 | disposition home or self-care (01) ==
PROVIDERS: Emergency Provider Nurse Practitioner Family; PCP Student in an Organized Health Care Education/Training Program
DX: J06.9 Acute upper respiratory infection, unspecified (principal); J02.9 Acute pharyngitis, unspecified; Z20.822 Contact with and (suspected) exposure to COVID-19; I10 Essential (primary) hypertension; M54.50 Low back pain, unspecified; G89.29 Other chronic pain
CPT/HCPCS: 87426; 87804; 99212; G0463

== ENCOUNTER 2024-07-18 08:54 | Emergency (ER) | payer OTHER, SELFPAY ==
--- NOTE | 2024-07-18 08:58 | ED.GENADULT ---
HPI - General Adult General Chief complaint: Fall Stated complaint: right side rib pain Time Seen by Provider: 07/18/24 09:14 Source: patient, RN notes reviewed and old records reviewed Mode of arrival: ambulatory Limitations: no limitations History of Present Illness HPI narrative: 78-year-old male presents to the [facility] with complaints of right rib discomfort. Patient states that he was carrying stuff Mike, tripped and landed on his right side. Reports that his elbow went right into his right ribs. Bruising is noted just below right breast to the lateral aspect. Tender to palpation. No swelling. Patient reports that he has taken ibuprofen. Denies hitting head. Denies loss of consciousness. No neck or back pain. Denies elbow or arm pain. Onset (ago): day(s) (3) Treatments prior to arrival: NSAID Related Data Home Medications ?Medication ?Instructions ?Recorded ?Confirmed ?Last Taken ?Type amlodipine 10 mg tablet 10 mg PO DAILY 11/03/22 06/26/24 Unknown History aspirin 81 mg tablet,delayed 81 mg PO DAILY 11/03/22 06/26/24 Unknown History release atorvastatin 40 mg tablet 40 mg PO DAILY 11/03/22 06/26/24 Unknown History fluticasone propionate 50 2 spray intranasal DIRECTED 11/03/22 06/26/24 Unknown History mcg/actuation nasal spray,suspension terazosin 5 mg capsule 10 mg PO DAILY 11/03/22 06/26/24 Unknown History losartan 100 mg tablet 100 mg PO DAILY 06/26/24 06/26/24 Unknown History Allergies Allergy/AdvReac Type Severity Reaction Status Date / Time Sulfa (Sulfonamide Allergy Intermediate Rash Verified 07/18/24 09:07 Antibiotics) cephalexin Allergy Unknown Unknown Verified 07/18/24 09:07 lisinopril Allergy Unknown Unknown Verified 07/18/24 09:07 sulfamethoxazole Allergy Unknown Unknown Verified 07/18/24 09:07 trimethoprim Allergy Unknown Unknown Verified 07/18/24 09:07 Review of Systems Review of Systems: All systems reviewed & are unremarkable except as noted in HPI and below Constitutional: Constitutional: Reports no additional constitutional complaints Cardiovascular: Cardiovascular: Reports no additional cardiovascular complaints, Denies chest pain and Denies dyspnea Respiratory: Respiratory: Reports no additional respiratory complaints, Denies chest congestion, Denies cough and Denies dyspnea Musculoskeletal: Musculoskeletal: Reports as per HPI Integumentary/Breasts: Skin/Breast: Reports system reviewed and no additional complaints, except as docu [facility] Past Medical History Medical History Chronic low back pain Hypertension Surgical History Surgical History History of carpal tunnel surgery of right wrist Family History Family History Mother No pertinent past medical history Social History Social History Alcohol intake: current Alcohol use details: Rarely Substance use: never Living arrangements: with family Occupation/Education: retired Gender identity (if verbalized by the patient): Male Sexual Orientation (if Verbalized by the Patient): Straight or Heterosexual Spiritual care concerns: No Comments At the time of my signature, I reviewed and agree with the nursing past medical, surgical, social, and family history. There is no relevant family history pertinent to the patient complaint. Exam Const: General: cooperative, healthy appearing, comfortable, no acute distress, well developed, alert and well nourished Nutritional Appearance: well nourished Orientation/consciousness: patient oriented x3 Limitations: no limitations HENMT: Head: normal to inspection Eyes: General: appearance normal, both eyes and all related structures Alignment and Position: alignment normal Neck: Neck: normal visual inspection, full ROM, no lymphadenopathy and no meningeal signs Chest: Chest palpation & inspection: normal inspection of the chest Chest/axillae images:  1. Bruising and tenderness noted. No swelling. Resp: Effort & Inspection: normal respiratory effort and able to speak in complete sentences Auscultation: clear to auscultation bilaterally, no crackles, no rales, no rhonchi and no wheezes Cardio: Rate: regular rate Skin: General skin exam: normal color and no rashes or lesions noted Neuro: General: patient oriented x3, gait normal, moves all extremities and no meningeal signs Cognition (Neuro): normal cognition Speech: normal speech Gait exam (Neuro): Normal gait present Extrem: General: normal to inspection, full ROM, capillary refill normal and normal gait Psych: Appearance: grossly normal and well kempt Mental Status: mental status grossly normal Speech and movement: Normal speech and movement present and Clear speech present Affect: normal affect Attitude: cooperative Course Course Emergency Course: X-ray is not working in consult today. Discussed with patient either discharge with anti-inflammatories. Patient states that he is concerned that he ?cracked a rib? offered to send to [place] or [place] for x-ray. Patient is choosing to go to [place] for the Xray. Sandra HENDRICKSON and Elizabeth MOREAU aware. Level of Care: Express Care Visit Vital Signs Vital signs: Vital Signs Temperature 97.3 F L 07/18/24 09:09 Pulse Rate 86 07/18/24 09:09 Respiratory Rate 16 07/18/24 09:09 Blood Pressure 161/83 H 07/18/24 09:09 Pulse Oximetry 98 07/18/24 09:09 Oxygen Delivery Room Air 07/18/24 09:09 Temperature 97.3 F L 07/18/24 09:09 Pulse Rate 86 07/18/24 09:09 Respiratory Rate 16 07/18/24 09:09 Blood Pressure 161/83 H 07/18/24 09:09 Pulse Oximetry 98 07/18/24 09:09 Oxygen Delivery Room Air 07/18/24 09:09 Reviewed Medical Decision Making MDM Narrative Medical decision making narrative: Patient sitting comfortably in exam room. Nontoxic, vitals stable. Patient in no acute distress Patient presents for concerns of ?cracked ribs. ? Requesting x-ray. Patient fell on Thursday morning, 3 days ago Patient sent to [facility] for x-ray. X-ray shows probability of nondisplaced rib fractures. Incentive spirometer given, instructions given. Patient appropriate for outpatient treatment and follow-up Discharge instructions reviewed with patient, as well as provided in writing per nursing staff. The instructions also include specific and strict return/GO TO THE ER as well as f/u information. All questions have been answered, and the patient deny any further questions with discharge and discharge plan. Some parts of this dictation were generated by voice recognition software and may contain typographical and/or grammatical inaccuracies. Differential Diagnosis Differential Diagnosis: Rib contusion, rib fracture Medical Records Medical records reviewed: Yes I reviewed the external patient's medical records. Vital Signs Vital Signs: Vital Signs Temperature 97.3 F L 07/18/24 09:09 Pulse Rate 86 07/18/24 09:09 Respiratory Rate 16 07/18/24 09:09 Blood Pressure 161/83 H 07/18/24 09:09 Pulse Oximetry 98 07/18/24 09:09 Oxygen Delivery Room Air 07/18/24 09:09 Temperature 97.3 F L 07/18/24 09:09 Pulse Rate 86 07/18/24 09:09 Respiratory Rate 16 07/18/24 09:09 Blood Pressure 161/83 H 07/18/24 09:09 Pulse Oximetry 98 07/18/24 09:09 Oxygen Delivery Room Air 07/18/24 09:09 Reviewed Lab Data Lab results reviewed: Yes I reviewed the patient's lab results. Labs: Reviewed Imaging Data Radiologist's impression: [id number] Ordering provider: Kaelyn Garcia APRN History: . fall, pain, bruise lateral rt lower ribs x 3 days . Comparison: None. FINDINGS: BONES: Highly suggestive Fracture of the right fourth and fifth ribs. LUNGS: No effusions or infiltrates. No pneumothorax. SOFT TISSUES: Normal. Left shoulder arthroplasty. IMPRESSION: Highly suggestive fracture of the right fourth and fifth ribs. Critical Care Time Critical Care Time Critical Care Time: No Discharge Plan Discharge Clinical Impression: Closed rib fracture Qualifiers: Encounter type: initial encounter Rib fracture type: multiple ribs Laterality: right Qualified Code(s): S22.41XA - Multiple fractures of ribs, right side, initial encounter for closed fracture Patient Disposition: Home, Self-Care Condition: Stable Instructions: How to Use an Incentive Spirometer (ED), Rib Fracture (ED) Additional Instructions: Use the incentive spirometer 10 times per hour while awake. Alternate Motrin and Tylenol as needed for pain Apply ice every 2-3 hours for 15-20 minutes while awake Follow-up with primary care provider within 2 weeks Today your blood pressure was 161/83 For new or worsening symptoms go directly to the emergency room Patient Language: [place] Prescriptions: No Action terazosin 5 mg capsule 10 mg PO DAILY atorvastatin 40 mg tablet 40 mg PO DAILY aspirin 81 mg tablet,delayed release (DR/EC) 81 mg PO DAILY amlodipine 10 mg tablet 10 mg PO DAILY fluticasone propionate 50 mcg/actuation spray,suspension 2 spray INTRANASAL DIRECTED losartan 100 mg tablet 100 mg PO DAILY Follow-up/Referrals: Melvi,DO Liang [Primary Care Provider] - 2 Weeks (express care follow up ) Stand Alone Forms: Work/School Release IP Time of Disposition: 10:34
[2024-07-18 09:09] VITALS: BP 161/83; PULSE 86; RESP 16; TEMP 36.3; O2SAT 98
== END 2024-07-18 10:37 | disposition home or self-care (01) ==
PROVIDERS: Emergency Provider Nurse Practitioner; PCP Student in an Organized Health Care Education/Training Program
DX: S22.41XA Multiple fractures of ribs, right side, initial encounter for closed fracture (principal); W01.0XXA Fall on same level from slipping, tripping and stumbling without subsequent striking against object, initial encounter; I10 Essential (primary) hypertension
CPT/HCPCS: 71101; 99213; G0463

== ENCOUNTER 2025-01-20 08:53 | Emergency (ER) | payer OTHER, SELFPAY ==
--- OUTSIDE RECORDS SUMMARY | 2023-10-31 16:30 | XMS_ITS ---
Author Organization [facility] ([phone]) Address [address] [facility] [address] [place] [address] Care Team Providers Care Hadoop Administrator Name Role Phone Junior Mayers Primary Care Provider Unavailab le Margaret Crawford Unavailable [phone] ZZ-Migration, Provider Unavailable Unavailab le Allergies Allergen (clinical drug ingredient) Drug/Non Drug Allergy documented on EMR Reaction Allergy Type Onset Date Status KEFLEX (uncoded) hives, swelling Allergy Active sulfamethoxazole / trimethoprim Bactrim hives, swelling Drug Allergy Active lisinopril Lisinopril hives, swelling Drug Allergy Active REASON FOR VISIT [facility] To [facility] Conversion Encounter Medications Medication SIG (Take, Route, Frequency, Duration) Notes Start Date End Date Status PROAIR HFA CFC FREE 90 MCG/INH 2 PUFF(S) INHALED 4 TIMES A DAY; Duration: 30 DAY(S) *Please review for potential replacement for e-prescription and drug interaction check* Active Atorvastatin Calcium 40 MG 1 tab(s) orally once a day (at bedtime) Active Aspirin 81 MG 1 tab(s) orally once a day Active Singulair 10 MG 1 tab(s) orally once a day (in the evening); Duration: 30 day(s) Active ASTELIN 137 MCG/INH 2 SPRAY(S) INTRANASALLY 2 TIMES A DAY; Duration: 30 DAY(S) *Please review for potential replacement for e-prescription and drug interaction check* Active Artificial Tears PRESERVED 1 GTT IN EACH EYE 2 TIMES A DAY *Please review and pick correct strength-formulat ion from [employer] options. If intended option is not shown, discontinue and re-order from Quick Search* Active Flonase Allergy Relief 50 MCG/ACT 1 spray(s) intranasally once a day Active Cholecalciferol 35160 INTL UNITS 1 CAP(S) ORALLY ONCE A WEEK *Please review and pick correct strength-formulat ion from [employer] options. If intended option is not shown, discontinue and re-order from Quick Search* Active Terazosin HCl 5 MG 1 cap(s) orally once a day (at bedtime) Active Omeprazole Magnesium 20 MG 1 tab(s) orally once a day Active amLODIPine Besylate 10 MG 1 tab(s) orally once a day Active Acetaminophen 500 MG 2 tab(s) orally every 6 hours Active Encounters Encounter Location Date Provider Diagnosis [address] [id number] 10/31/2023 Provider Rasheed Allergic rhinitis due to pollen J30.1 and Cough R05 Assessments Encounter Date Diagnosis (ICD Code) Assessment Notes Treatment Notes Treatment Clinical Notes Section Notes 10/31/2023 Allergic rhinitis due to pollen (ICD-10 - J30.1) 10/31/2023 Cough (ICD-10 - R05) Plan Of Treatment Medication Medication Name Sig Start Date Stop Date Notes PROAIR HFA CFC FREE 90 MCG/INH 2 PUFF(S) INHALED 4 TIMES A DAY; Duration: 30 DAY(S) *Please review for potential replacement for e-prescription and drug interaction check* Singulair 10 MG 1 tab(s) orally once a day (in the evening); Duration: 30 day(s) ASTELIN 137 MCG/INH 2 SPRAY(S) INTRANASALLY 2 TIMES A DAY; Duration: 30 DAY(S) *Please review for potential replacement for e-prescription and drug interaction check* Progress Notes * Austin THOMAS SR.DOB: (79 yo M)Acc No.[id number]:10/31/2023 Patient: Austin AGUIRRE SR. Provider: Cordell Curiel :1945 A ge:78 Y S ex:Male Date:10/31/2023 Address:[address] [place] [address] [address] [id number] Pcp:Junior Mayers Subjective: * Chief Complaints: * 1 . [facility] En[facility]. * Medical History: * Medications: T aking Acetaminophen 500 MG Tablet 2 tab(s) orally every 6 hours , Taking amLODIPine Besylate 10 MG Tablet 1 tab(s) orally once a day , Taking Artificial Tears PRESERVED SOLUTION 1 GTT IN EACH EYE 2 TIMES A DAY , Notes to Pharmacist: *Please review and pick correct strength-formulation from [facility] options. If intended option is not shown, discontinue and re-order from Quick Search*, Taking Cholecalciferol 67532 INTL UNITS CAPSULE 1 CAP(S) ORALLY ONCE A WEEK , Notes to Pharmacist: *Please review and pick correct strength-formulation from [facility] options. If intended option is not shown, discontinue and re-order from Quick Search*, Taking Flonase Allergy Relief 50 MCG/ACT Suspension 1 spray(s) intranasally once a day , Taking Omeprazole Magnesium 20 MG Tablet Delayed Release 1 tab(s) orally once a day , Taking Terazosin HCl 5 MG Capsule 1 cap(s) orally once a day (at bedtime) , Taking Aspirin 81 MG Tablet Delayed Release 1 tab(s) orally once a day , Taking Atorvastatin Calcium 40 MG Tablet 1 tab(s) orally once a day (at bedtime) * Allergies: B actrim: hives, swelling, KEFLEX: hives, swelling, Lisinopril: hives, swelling. Objective: * Vitals: Assessment: * Assessment: 1. A llergic rhinitis due to pollen - J30.1 (Primary) 2 . C ough - R05 Plan: * Treatment: 2. C ough Continue PROAIR HFA AEROSOL, CFC FREE 90 MCG/INH, 2 PUFF(S), INHALED, 4 TIMES A DAY, 30 DAY(S), 240, Notes to Pharmacist: *Please review for potential replacement for e-prescription and drug interaction check*. * Billing Information: * Visit Code: * Procedure Codes: * Electronic signature of Josue RUIZ-Migration on 01/20/2025 at 09:00 AM CDT Sign off status: Pending * Provider: Cordell bhakta Migration Date: 0 10/31/2023 Generated for Jose hamilton/Faxing/eTransmitting on: 0 01/20/2025 09:00 AM CDT
--- NOTE | ~2025-01-20 | CT_ITS ---
EXAMINATION: CT abdomen pelvis w con DATE: 01/20/2025 10:15 INDICATION: One month of flank pain. TECHNIQUE: Computed tomography (CT) of the abdomen and pelvis was performed with 100 mL Omnipaque-350 intravenous contrast. Automated exposure control and iterative reconstruction technique were employed. The dose-length product was 1455.44 mGy-cm. COMPARISON: 09/14/2021 FINDINGS: Lung bases are clear. Heart size normal. Atherosclerotic coronary artery calcific location. Aortic valve calcification. No pericardial or pleural effusion. Small sliding-type hiatal hernia. There are few hepatic cysts, the largest measuring 3.3 cm in maximal diameter. Small calcified gallstone in the n lamar of the normal-appearing nondistended gallbladder. A couple unchanged small likely additional calcifications at the head of the normal-appearing pancreas. Liver, spleen and bilateral adrenal glands are normal. There are small parapelvic cysts at both kidneys with a couple larger cyst at the upper pole the right kidney measuring up to 3.2 cm. No urolithiasis. Bladder is normal. Moderate sigmoid and distal descending colon predominant diverticulosis without adjacent inflammatory stranding to suggest diverticulitis. The appendix is not visualized. No pericecal inflammatory change to suggest acute appendicitis. No free intraperitoneal gas or fluid. No pathologically enlarged abdominal or pelvic lymphadenopathy. Moderate lumbar and lower thoracic spondylosis. IMPRESSION: 1. No acute intra-abdominal/pelvic process. 2. Cholelithiasis. 3. Diverticulosis. Reviewed, dictated and finalized at location A.
--- OUTSIDE RECORDS SUMMARY | 2025-01-20 09:00 | XMS_ITS | Encounter Summary ---
Author Organization [facility] Address 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
--- OUTSIDE RECORDS SUMMARY | 2025-01-20 09:00 | XMS_ITS | Clinical Summary ---
Author Organization [facility] Address [address] [place] [address] Care Team Providers Care College Or University Business Manager Name Role Phone Junior Masters MD Primary Care Provider [phone] Allergies Active Allergy Reactions Criticality Noted Date Comments Rosuvastatin Unknown 11/22/2018 Lisinopril Unknown 11/23/2017 Pravastatin Unknown 11/23/2017 Sulfa (Sulfonamide Antibiotics) Medications fluticasone (FLONASE) 50 mcg/actuation nasal spray inhale 1 spray by intranasal route every day in each nostril 0 spray 0 5 Active diclofenac (CATAFLAM) 50 mg tablet take 1 tablet by oral route every day 0 0 5 Active montelukast (SINGULAIR) 10 mg tablet take 1 tablet by oral route every day in the evening 0 0 5 Active acetaminophen (TYLENOL) 325 mg tablet take 1 tablet by oral route every 4 hours as needed 0 0 5 Active Additional Information Patient taking differently: 1,000 mg, Reported on 11/22/2018 amLODIPine (NORVASC) 10 mg tablet take 1/2 tablet (10MG) by oral route every day 0 5 Active cholecalciferol (VITAMIN D3) 2,000 unit tablet take 1 Tablet by Oral route every day 0 3 Active Additional Information Patient taking differently: 1,000 Units, Reported on 11/23/2017 terazosin (HYTRIN) 5 mg capsule take 1 capsule (5MG) by oral route every day at bedtime 0 3 Active omeprazole (PriLOSEC) 20 mg capsule take 1 capsule (20MG) by oral route every day at bedtime 0 3 Active multivit-minera ls-ferrous fum (MULTI VITAMIN) 9 mg iron/15 mL liquid 0 3 Active atorvastatin (LIPITOR) 40 mg tablet Take 20 mg by mouth daily Active apixaban (ELIQUIS) 5 mg tabletIndicatio ns:Venous Thrombosis Take 1 tablet (5 mg total) by mouth 2 (two) times a day. 8 Active coenzyme Q10 200 mg capsule Take 200 mg by mouth daily. Active red yeast rice 600 mg tablet Take by mouth. A ctive HYDROcodone-farideh taminophen (NORCO) 5-325 mg per tablet Take 1 tablet by mouth every 6 (six) hours as needed for pain 40 tablet 9 Active Active Problems Problem Noted Date Diagnosed Date Hypercholesterolemia 09/05/2013 Overview (08/22/2016): Hypercholesterolemia Assessment & Plan (11/22/2018 2:10 PM CDT): Lipids today looked good despite the fact that he has been taken off atorvastatin. He is to start on an alternative statin (he does not know which) in the near future. Assessment & Plan (11/23/2017 1:49 PM CDT): On chronic lipid lowering therapy with good control. No changes made. Coronary arteriosclerosis in [place] artery 09/05 Overview (08/22/2016): CAD, [place] Vessel Assessment & Plan (11/22/2018 2:09 PM CDT): No symptoms of myocardial ischemia. Stop aspirin as he is on Eliquis. Assessment & Plan (11/23/2017 1:49 PM CDT): Asymptomatic. Continue aspirin. Benign hypertension 09/05/2013 Overview (08/22/2016): Hypertension, Benign Assessment & Plan (11/22/2018 2:10 PM CDT): Blood pressure is adequately controlled on current regimen. No change was made. Assessment & Plan (11/23/2017 1:49 PM CDT): Blood pressure is adequately controlled on current regimen. No change was made. Surgical History Surgery Date Site/Laterality Comments CARPAL TUNNEL RELEASE 2001 Surgery for Carpal Tunnel APPENDECTOMY 2007 Appendectomy SHOULDER SURGERY Left Shoulder Surgery SHOULDER ARTHROPLASTY 2010 left shoulder replacement OTHER SURGICAL HISTORY 2002 appendix operation emergency OTHER SURGICAL HISTORY 2010 amputaled tip left middle finger CARPAL TUNNEL RELEASE 1997 carpal tunnel release OTHER SURGICAL HISTORY 1966 operation left shoulder Medical History Medical History Date Comments Hypertension Hypertension Family History Medical History Relation Name Comments Cancer Father 2 Cancer; Cause o f : Cancer Cancer Mother 2 Cancer; Cause o f : Cancer Relation Name Status Comments Father 1 (Age 78) Father 2 Mother 1 (Age 76) Mother 2 Social History Tobacco Use Types Packs/Day Years Used Date Smoking Tobacco: Former Smokeless Tobacco: Never Alcohol Use Standard Drinks/Week Comments Yes 0 (1 standard drink = 0.6 oz pur e alcohol) Sex and Gender Information Value Date Recorded Sex Assigned at Not on file 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 Gender Identity Not on file Sexual Orientation Not on file Obstetrics History Last Filed Vital Signs Vital Sign Reading Time Taken Comments Blood Pressure 136/74 11/22/2018 1:41 PM CDT Pulse 87 11/22/2018 1:41 PM CDT Temperature - - Respiratory Rate - - Oxygen Saturation 98% 07/21/2018 1:15 PM SUPPORT SERVICES COORDINATOR Inhaled Oxygen Concentration - - Weight 113.4 kg (250 lb) 11/22/2018 1:41 PM CDT Height 180.3 cm (5' 11) 11/22/2018 1:41 PM CDT Body Mass Index 34.87 11/22/2018 1:41 PM CDT Plan of Treatment Not on file Insurance [facility] Care Teams College Or University Business Manager Relationship Specialty Start Date End Date Junior Masters MD PCP - General Family Medicine 11/03/18
--- OUTSIDE RECORDS SUMMARY | 2025-01-20 09:00 | XMS_ITS | Encounter Summary ---
Author Organization [facility] Care Team Providers Care Surgical Nurse Practitioner Name Role Phone Junior Masters MD Primary Care Provider [phone] Encounter Details Date Type Department Care Team (Latest Contact Info) Description 10/30/2017 Orders Only [facility]IN[facility] ProviderWolf MD [address] [place] [address] Social History Tobacco Use Types Packs/Day Years Used Date Smoking Tobacco: Former Cigarettes Q uit: 05/18/1972 Alcohol Use Standard Drinks/Week Comments Yes 0 (1 standard drink = 0.6 oz pur e alcohol) Sex and Gender Information Value Date Recorded Sex Assigned at Not on file 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 Historical Provider Final Res ult documented in this encounter Visit Diagnoses Not on filedocumented in this encounter Care Teams Surgical Nurse Practitioner Relationship Specialty Start Date End Date Junior Masters MD PCP - General Family Medicine 11/03/18 documented as of this encounter
--- OUTSIDE RECORDS SUMMARY | 2025-01-20 09:00 | XMS_ITS | Clinical Summary ---
Author Organization [facility] Address [address] [place] [address] Phone Care Team Providers Care Internet Sales Director Name Role Phone Unavailable Primary Care Provider Unavailabl e Social History Tobacco Use Types Packs/Day Years Used Date Smoking Tobacco: Never Assessed Sex and Gender Information Value Date Recorded Sex Assigned at Not on file Legal Sex Male 7:21 PM CDT Gender Identity Not on file Sexual Orientation Not on file Plan of Treatment Health Maintenance Due Date Last Done Comments Hepatitis C Virus (HCV) Screening 1945 TdaP Immunization 1945 Pneumococcal Immunization (50+ years) (1 of 1 - PCV) 08/16/1995 Zoster Immunization (1 of 2) 08/16/1995 Respiratory Syncytial Virus (RSV) Immunization (Adult) (1 - 1-dose 75+ series) 2020 SARS-COV-2 Immunization ( season) 2024 08/20/2021, 04/16/2021, 07/19/2020, Additional history exists Influenza Immunization (#1) 2025 Hepatitis B Immunization Aged Out No longer eligible based on patient's age to complete this topic Human Papillomavirus (HPV) Immunization Aged Out No longer eligible based on patient's age to complete this topic Meningococcal Immunization (ACWY) Aged Out No longer eligible based on patient's age to complete this topic Rotavirus Immunization Aged Out No lo nger eligible based on patient's age to complete this topic
--- OUTSIDE RECORDS SUMMARY | 2025-01-20 09:00 | XMS_ITS | Patient Health Record ---
Author Organization [facility] ([address]) Address [address] [facility] [address] [place] [address] Care Team Providers Care Organic Gardening Teacher Name Role Phone Junior Mayers Primary Care Provider Unavailab Margaret Romero Unavailable [phone] Allergies Allergen (clinical drug ingredient) Drug/Non Drug Allergy documented on EMR Reaction Allergy Type Onset Date Status KEFLEX (uncoded) hives, swelling Allergy Active sulfamethoxazole / trimethoprim Bactrim hives, swelling Drug Allergy Active lisinopril Lisinopril hives, swelling Drug Allergy Active Reason For Referral No Information Medications Medication SIG (Take, Route, Frequency, Duration) Notes Start Date End Date Status TERAZOSIN 5 mg 1 cap(s) orally once a day (at bedtime) Active OMEPRAZOLE 20 mg 1 tab(s) orally once a day Active FLONASE 50 mcg/inh 1 spray(s) intranasally once a day Active CHOLECALCIFEROL 97647 intl units 1 cap(s) orally once a week Active ARTIFICIAL TEARS preserved 1 gtt in each eye 2 times a day Active AMLODIPINE 10 mg 1 tab(s) orally once a day Active ACETAMINOPHEN 500 mg 2 tab(s) orally every 6 hours Active SINGULAIR 10 mg 1 tab(s) orally once a day (in the evening); Duration: 30 day(s) Active ASPIR 81 81 mg 1 tab(s) orally once a day Active PROAIR HFA CFC FREE 90 MCG/INH 2 PUFF(S) INHALED 4 TIMES A DAY; Duration: 30 DAY(S) *Please review for potential replacement for e-prescription and drug interaction check* Active Artificial Tears PRESERVED 1 GTT IN EACH EYE 2 TIMES A DAY *Please review and pick correct strength-formulat ion from Granify options. If intended option is not shown, discontinue and re-order from Quick Search* Active amLODIPine Besylate 10 MG 1 tab(s) orally once a day Active Flonase Allergy Relief 50 MCG/ACT 1 spray(s) intranasally once a day Active Cholecalciferol 24507 INTL UNITS 1 CAP(S) ORALLY ONCE A WEEK *Please review and pick correct strength-formulat ion from Granify options. If intended option is not shown, discontinue and re-order from Quick Search* Active Terazosin HCl 5 MG 1 cap(s) orally once a day (at bedtime) Active Omeprazole Magnesium 20 MG 1 tab(s) orally once a day Active Atorvastatin Calcium 40 MG 1 tab(s) orally once a day (at bedtime) Active ATORVASTATIN 40 mg 1 tab(s) orally once a day (at bedtime) Active Aspirin 81 MG 1 tab(s) orally once a day Active Singulair 10 MG 1 tab(s) orally once a day (in the evening); Duration: 30 day(s) Active ASTELIN 137 MCG/INH 2 SPRAY(S) INTRANASALLY 2 TIMES A DAY; Duration: 30 DAY(S) *Please review for potential replacement for e-prescription and drug interaction check* Active Acetaminophen 500 MG 2 tab(s) orally every 6 hours Active Problems Problem Type SNOMED Code ICD Code Onset Dates Problem Status W/U Status Risk Notes Problem Allergic rhinitis caused by pollen (disorder) (45530573) Allergic rhinitis due to pollen (J30.1) Active confirmed Problem Allergic rhinitis (90381155) Other allergic rhinitis (J30.89) Active confirmed Problem Cough (42120979) Cough (R05) Active confirmed Problem Allergic rhinitis caused by animal hair and dander (799455936333822) Allergic rhinitis due to animal (cat) (dog) hair and dander (J30.81) Active confirmed Problem Chronic allergic conjunctivitis (41963427) Other chronic allergic conjunctivitis (H10.45) Active confirmed Plan Of Treatment No Information Insurance Providers Payer Name Payer Address Payer Phone Subscriber Number Group Number Insured Name Patient Relationship to Insured Coverage Start Date Coverage End Date [employer] [address] [address] [place] [phone] [id number] Matteo Horowitz Edrosemary Self - patient is the insured [employer] [address] [place] [address] [phone] [id number] Matteo Horowitz [place] Self - patient is the insured Medical (General) History Medical History History ICD Code Hypertension Hyperlipidemia Surgical History Surgery Date(Month/Year) carpal tunnel release 2001 appendectomy 2005 Left shoulder replacement 2009 Hospitalization History Reason Date(Month/Year) Bowel Obstruction 2013
--- OUTSIDE RECORDS SUMMARY | 2025-01-20 09:00 | XMS_ITS | Encounter Summary ---
Author Organization [facility] Address [address] [place] [address] Care Team Providers Care Tin Roofer Name Role Phone Unavailable Primary Care Provider Unavailabl e Encounter Details Date Type Department Care Team (Late st Contact Info) Description 11/14/2002 Outpatient Historical [facility] [place] [place] Support Serv. ([facility]) [address] 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
--- OUTSIDE RECORDS SUMMARY | 2025-01-20 09:00 | XMS_ITS | Clinical Summary ---
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
--- OUTSIDE RECORDS SUMMARY | 2025-01-20 09:00 | XMS_ITS | Encounter Summary ---
Author Organization [facility] Facility Care Team Providers Care Assembler Installer Structures Name Role Phone Juniro Masters MD Primary Care Provider [phone] Encounter Details Date Type Department Care Team (Latest Contact Info) Description 10/18/2017 Orders Only [facility] CLINCON[facility] ProviderWolf MD [address] [place] [id number] Social History Tobacco Use Types Packs/Day Years Used Date Smoking Tobacco: Former Cigarettes Q uit: 05/18/1972 Alcohol Use Standard Drinks/Week Comments Yes 0 (1 standard drink = 0.6 oz pur e alcohol) Sex and Gender Information Value Date Recorded Sex Assigned at Not on file Legal Sex Male 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 Historical Provider Final Res ult documented in this encounter Visit Diagnoses Not on filedocumented in this encounter Care Teams Assembler Installer Structures Relationship Specialty Start Date End Date Junior Masters MD PCP - General Family Medicine 11/03/18 documented as of this encounter
--- OUTSIDE RECORDS SUMMARY | 2025-01-20 09:00 | XMS_ITS | Encounter Summary ---
Author Organization [facility] Facility Care Team Providers Care Gathering Machine Setter Name Role Phone Junior Masters MD Primary Care Provider [phone] Encounter Details Date Type Department Care Team (Latest Contact Info) Description 03/24/2017 Orders Only [facility] CLINCONV ProviderWolf MD [address] [place] [id number] Social History Tobacco Use Types Packs/Day Years Used Date Smoking Tobacco: Former Cigarettes Q uit: 05/18/1972 Alcohol Use Standard Drinks/Week Comments Yes 0 (1 standard drink = 0.6 oz pur e alcohol) Sex and Gender Information Value Date Recorded Sex Assigned at Not on file Legal Sex Male 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 Historical Provider Final Res ult documented in this encounter Visit Diagnoses Not on filedocumented in this encounter Care Teams Gathering Machine Setter Relationship Specialty Start Date End Date Junior Masters MD PCP - General Family Medicine 11/03/18 documented as of this encounter
[2025-01-20 09:02] VITALS: BP 174/89; PULSE 96; RESP 18; TEMP 36.6; O2SAT 99
[2025-01-20 09:28] LABS: Add Urine Microscopic? NO; Appearance Urine Clear (Clear); Glucose Urine UA Negative (Negative); Hematocrit 42.4 % (42.0-52.0); Hemoglobin 13.9 g/dL (14.0-18.0); Immature Granulocyte Percent A 0.5 % (0-0.5); Immature Platelet Fraction Pct 1.4 % (0.9-11.2); Leukocyte Esterase Ur Negative LEU/UL (Negative); Lymphocytes Absolute Auto 1.69 K/mm3 (0.9-3.2); Mean Corpuscular HGB Conc 32.8 g/dl (32-36); Mean Corpuscular Hemoglobin 30.5 pg (26-34); Mean Corpuscular Volume 93.2 fl (80-100); Nitrate Urine Negative (Negative); Nucleated Red Blood Cells Absolute Auto 0.000 K/mm3 (0.0-0.012); Nucleated Red Blood Cells Perc 0.0 % (0.0-0.2); Platelet Count Result 154 k/mm3 (150-375); Red Blood Count 4.55 M/mm3 (4.6-6.20); Specific Grav Ur 1.006 (1.001-1.035); White Blood Count 6.2 K/mm3 (4.5-10.0)
--- NOTE | 2025-01-20 09:43 | ED.BACK ---
HPI - Back Pain/Injury General Chief Complaint: Back Pain/Injury Stated Complaint: left flank pain for past month Time Seen by Provider: 01/20/25 09:20 Source: patient and RN notes reviewed Mode of arrival: ambulatory Limitations: no limitations History of Present Illness HPI Narrative: 79-year-old male presents Express Care complaining of left flank pain for the last month. Patient states started in his mid back and radiates into his left flank. Patient reports having intermittent left lower quadrant pain. Patient said he [facility] did lab work in urine said everything looked okay to me had osteoarthritis. Patient denies the pain being worse with movements. Patient denies any fevers, body aches, blood in his urine, chills, nausea, vomiting, diarrhea, urinary symptoms, or any other symptoms. Patient has a history of diverticulosis. Related Data Home Medications ?Medication ?Instructions ?Recorded ?Confirmed ?Last Taken ?Type amlodipine 10 mg tablet 10 mg PO DAILY 11/03/22 06/26/24 Unknown History aspirin 81 mg tablet,delayed 81 mg PO DAILY 11/03/22 06/26/24 Unknown History release atorvastatin 40 mg tablet 40 mg PO DAILY 11/03/22 06/26/24 Unknown History fluticasone propionate 50 2 spray intranasal DIRECTED 11/03/22 06/26/24 Unknown History mcg/actuation nasal spray,suspension terazosin 5 mg capsule 10 mg PO DAILY 11/03/22 06/26/24 Unknown History losartan 100 mg tablet 100 mg PO DAILY 06/26/24 06/26/24 Unknown History Allergies Allergy/AdvReac Type Severity Reaction Status Date / Time Sulfa (Sulfonamide Allergy Intermediate Rash Verified 07/18/24 09:07 Antibiotics) cephalexin Allergy Unknown Unknown Verified 07/18/24 09:07 lisinopril Allergy Unknown Unknown Verified 07/18/24 09:07 sulfamethoxazole Allergy Unknown Unknown Verified 07/18/24 09:07 trimethoprim Allergy Unknown Unknown Verified 07/18/24 09:07 Review of Systems Review of Systems: CONSTITUTIONAL: Denies fever, chills, or sweats. EYES: Denies visual changes, redness, or discharge. ENT: Denies rhinorrhea, congestion, sore throat, or otalgia. CARDIOVASCULAR: Denies chest pain, palpitations, or edema. RESPIRATORY: Denies cough or dyspnea. GASTROINTESTINAL: Denies nausea, vomiting, or diarrhea. Positive for left lower abdominal pain. GENITOURINARY: Denies dysuria or hematuria. SKIN: Denies rash or itching. MUSCULOSKELETAL: Denies back pain, joint pain, or myalgia. Positive for flank pain. NEUROLOGIC: Denies headache, numbness, or weakness. PSYCHIATRIC: Denies anxiety or depression. All other systems reviewed are negative, except as documented in HPI. [facility] Past Medical History Medical History Chronic low back pain Hypertension Surgical History Surgical History History of carpal tunnel surgery of right wrist Family History Family History Mother No pertinent past medical history Social History Social History Alcohol intake: current Alcohol use details: Rarely Substance use: never Living arrangements: with family Occupation/Education: retired Gender identity (if verbalized by the patient): Male Sexual Orientation (if Verbalized by the Patient): Straight or Heterosexual Spiritual care concerns: No Comments At the time of my signature, I reviewed and agree with the nursing past medical, surgical, social, and family history. There is no relevant family history pertinent to the patient complaint. Exam Narrative: GENERAL: This is a well-nourished, well-developed adult, in no apparent distress. They are non ill-appearing, nontoxic appearing. HEAD: normocephalic, atraumatic. EYES: Sclera clear/white. Conjunctiva normal. Vision is grossly intact. Extraocular movements intact EARS: External ears normal, Hearing grossly intact. NOSE: External nose normal THROAT: Mucous membranes moist, NECK: Neck supple, CARDIOVASCULAR: Regular rate and rhythm without murmurs, gallops, or rubs. RESPIRATORY: Clear to auscultation. Breath sounds equal bilaterally. No wheezes, rales, or rhonchi. GASTROINTESTINAL: Abdomen soft, non-tender, nondistended. Bowel sounds are active. No hepato-splenomegaly, or palpable masses. No guarding or rigidity. SKIN: warm, Dry, intact with no suspicious lesions or rash, good texture and turgor. NEURO: awake, alert, and oriented to person, place and time. There were no obvious focal neurologic abnormalities. EXTREMITIES: No joint tenderness, effusion, or edema noted. BACK: Nontender without deformity. No CVA tenderness. No cervical, thoracic, lumbar point tenderness, crepitus, or step-offs. Course Course Emergency Course: Portions of this record may have been created with voice recognition software Vital Signs Vital signs: Vital Signs Temperature 97.8 F 01/20/25 09:02 Pulse Rate 96 01/20/25 09:02 Respiratory Rate 18 01/20/25 09:02 Blood Pressure 174/89 H 01/20/25 09:02 Pulse Oximetry 99 01/20/25 09:02 Oxygen Delivery Room Air 01/20/25 09:02 Temperature 98.3 F 01/20/25 11:45 Pulse Rate 70 01/20/25 11:45 Respiratory Rate 16 01/20/25 11:45 Blood Pressure 138/82 01/20/25 11:45 Pulse Oximetry 100 01/20/25 11:45 Oxygen Delivery Room Air 01/20/25 09:02 Reviewed MDM - Back Pain/Injury MDM Narrative Medical decision making narrative: Will obtain lab work, urine imaging to assess for patient's lead pain. Symptoms wax and wane unsure if it is kidney stone. CBC unremarkable. Chemistry normal. Urine normal no evidence of infection or blood in urine. CT abdomen and pelvis shows cholelithiasis and diverticulosis otherwise no acute intra-abdominal/pelvic process. No evidence of diverticulitis or cholecystitis. No peritoneal findings on exam. Is noted patient does have thoracic and lumbar radiculopathy. Symptoms could be related to patient's arthritis. Advised patient close follow-up PCP. Discussed physical exam findings. Advised supportive measures and signs/symptoms to go to the ER. Pt is appropriate for outpt treatment and f/u. Differential Diagnosis Differential diagnosis: Likely renal colic, pyelonephritis, thoracic back pain and discitis Lab Data Attestation: I reviewed the patient's lab results. 01/20/25 09:15 01/20/25 09:15 Labs: Lab Results 01/20/25 Range/Units 09:15 WBC 6.2 (4.5-10.0) K/mm3 RBC 4.55 L (4.6-6.20) M/mm3 Hgb 13.9 L (14.0-18.0) g/dL Hct 42.4 (42.0-52.0) % MCV 93.2 (80-100) fl MCH 30.5 (26-34) pg MCHC 32.8 (32-36) g/dl RDW 12.7 (11.5-14.5) % Plt Count 154 (150-375) k/mm3 MPV 8.9 (7.4-10.4) fl Immature Gran % (Auto) 0.5 (0-0.5) % Neut % (Auto) 59.9 (45.5-73.1) % Lymph % (Auto) 27.3 (18.3-44.2) % [place] % (Auto) 7.6 (2.6-8.5) % Eos % (Auto) 4.2 (0-4.4) % Baso % (Auto) 0.5 (0.2-1.2) % Lymph # (Auto) 1.69 (0.9-3.2) K/mm3 [place] # (Auto) 0.5 (0.1-0.6) K/mm3 Eos # (Auto) 0.3 (0-0.3) K/mm3 Baso # (Auto) 0.0 (0.0-0.1) K/mm3 Abs Immat Gran (auto) 0.03 (0.00-0.031) K/mm3 Absolute Neuts (auto) 3.7 (1.3-6.7) K/mm3 Absolute Nucleated RBC 0.000 (0.0-0.012) K/mm3 Nucleated RBC % 0.0 (0.0-0.2) % % Immature Plt Fraction 1.4 (0.9-11.2) % Sodium 138 (137-145) mmol/L Potassium 4.0 (3.4-5.0) mmol/L Chloride 104 (98-107) mmol/L Carbon Dioxide 27 (22-30) mmol/L Anion Gap 7 (4-12) mmol/L BUN 14 (9-20) mg/dL Creatinine 0.82 (0.7-1.3) mg/dL Estim Creat Clear Calc 84 ml/min Estimated GFR > 60 (59 - ) Glucose 90 (65-110) mg/dL Calcium 9.1 (8.4-10.2) mg/dL Total Bilirubin 0.6 (0.2-1.3) mg/dL AST 34 (17-59) U/L ALT 23 (6-50) U/L Alkaline Phosphatase 56 (38-126) U/L Total Protein 7.1 (6.3-8.2) g/dL Albumin 4.2 (3.5-5.1) g/dL Urine Color Yellow (Yellow) Urine Appearance Clear (Clear) Urine pH 6.0 (5.0-9.0) Ur Specific [place] 1.006 (1.001-1.035) Urine Protein Negative (Negative) mg/dL Urine Glucose (UA) Negative (Negative) mg/dL Urine Ketones Negative (Negative) mg/dL Ur Blood (Man) Negative (Negative) Urine Nitrate Negative (Negative) Urine Bilirubin Negative (Negative) Urine Urobilinogen 0.2 (<2.0) mg/dL Leukocyte Esterase Rfl Negative (Negative) CHRISTOPHER/UL Imaging Data Radiologist's impression: ITS Impressions Abdomen/Pelvis CT 01/20/25 10:24 IMPRESSION: 1. No acute intra-abdominal/pelvic process. 2. Cholelithiasis. 3. Diverticulosis. Critical Care Time Critical Care Time Critical Care Time: No Discharge Plan Discharge Clinical Impression: Flank pain Patient Disposition: Home Condition: Stable Instructions: Flank Pain (ED) Additional Instructions: Your lab work and urine are unremarkable. Your CT scan does not show any acute you abdominal or pelvic findings. Did incidentally find that you have gallstones and diverticulosis without any evidence of infection. Please follow-up with your PCP in 3-5 days. You may take ibuprofen 600 mg to 800 mg every 6-8 hours. Do not exceed more than 800 mg of ibuprofen per dose. Do not exceed more than 3200 mg ibuprofen in a day. You may take up to 1000 mg Tylenol every 6-8 hours. Do not exceed 1000 mg per dose, do exceed more than 4000 mg of Tylenol in a day. Return to the ER if you develops severe abdominal pain, nausea, vomiting, urinary symptoms, fevers, chest pain, breathing problems, weakness, or any serious concerns. Patient Language: Korean Prescriptions: No Action terazosin 5 mg capsule 10 mg PO DAILY atorvastatin 40 mg tablet 40 mg PO DAILY aspirin 81 mg tablet,delayed release (DR/EC) 81 mg PO DAILY amlodipine 10 mg tablet 10 mg PO DAILY fluticasone propionate 50 mcg/actuation spray,suspension 2 spray INTRANASAL DIRECTED losartan 100 mg tablet 100 mg PO DAILY Follow-up/Referrals: Melvi,DO Liang [Primary Care Provider] Time of Disposition: 11:16
--- OUTSIDE RECORDS SUMMARY | 2025-01-20 09:44 | XMS_ITS | Clinical Summary ---
Author Organization [facility] Address [address] [place] [address] Phone Care Team Providers Care Skill Training Program Coordinator Name Role Phone Unavailable Primary Care [...]
--- OUTSIDE RECORDS SUMMARY | 2025-01-20 09:44 | XMS_ITS | Clinical Summary ---
Author Organization [facility] Address [address] [place] [id number] Care Team Providers Care Enterprise Systems Architect Name Role Phone Junior Masters MD Primary Care Provider [phone] Allergies Active Allergy Reactions Criticality Noted Date [...] control. No changes made. 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 Gender Identity Not on file Sexual Orientation Not on file Obstetrics History Last Filed Vital Signs Vital Sign Reading Time Taken Comments Blood Pressure 136/74 11/22/2018 1:41 PM CDT Pulse 87 11/22/2018 1:41 PM CDT Temperature - - Respiratory Rate - - Oxygen Saturation 98% 07/21/2018 1:15 PM MOVING VAN DRIVER Inhaled Oxygen Concentration - - Weight 113.4 kg (250 lb) 11/22/2018 1:41 PM CDT Height 180.3 cm (5' 11) 11/22/2018 1:41 PM CDT Body Mass Index 34.87 11/22/2018 1:41 PM CDT Plan of Treatment Not on file Insurance [facility] Care Teams Enterprise Systems Architect Relationship Specialty Start Date End Date Junior Masters MD PCP - General Family Medicine 11/03/18
--- OUTSIDE RECORDS SUMMARY | 2025-01-20 09:44 | XMS_ITS | Encounter Summary ---
Author Organization [facility] Facility Care Team Providers Care Serger Name Role Phone Junior Masters MD Primary Care Provider [phone] Encounter Details Date Type Department Care Team (Latest Contact Info) Description 10/30/2017 Orders Only [facility] CLINCONV ProviderWolf MD [address] [place] [address] Social History Tobacco Use Types Packs/Day Years Used Date Smoking Tobacco: Former Cigarettes Q uit: 05/18/1972 Alcohol Use Standard Drinks/Week Comments Yes 0 (1 standard drink = 0.6 oz pur e alcohol) Sex and Gender Information Value Date Recorded Sex Assigned at Not on file 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
--- OUTSIDE RECORDS SUMMARY | 2025-01-20 09:44 | XMS_ITS | Clinical Summary ---
Author Organization [facility] Address [address] Attn: Epic Prelude ADT CLAUDIA GARCIA [address] Care Team Providers Care Shop Manager Name Role Phone Unavailable Primary Care Provider Unavailabl e Social History Tobacco Use Types Packs/Day Years Used Date Smoking Tobacco: Never Assessed Sex and Gender Information Value Date Recorded Sex Assigned at Not on file Legal Sex Male 3:19 AM SENIOR MICROSOFT CONSULTANT Gender Identity Not on file Sexual Orientation [...]
--- OUTSIDE RECORDS SUMMARY | 2025-01-20 09:44 | XMS_ITS | Encounter Summary ---
Author Organization [facility] Address [address] [place] [address] Care Team Providers Care Bracelet Form Coverer Name Role Phone Unavailable Primary Care Provider Unavailabl e Encounter Details Date Type Department Care Team (Late st Contact Info) Description 11/14/2002 Outpatient Historical [facility] Support [facility] (Adt Cardiology[facility]) [address] [place] [id number] Siddhartha Jesus Social History Tobacco Use Types Packs/Day Years Used Date Smoking Tobacco: Never Assessed Sex and Gender Information Value Date Recorded Sex Assigned at Not on file Legal Sex Male 3:19 AM PATTERN ATTENDANT Gender Identity Not on file Sexual Orientation Not on file documented as of this encounter Plan of Treatment Not on file documented as of this encounter Visit Diagnoses Not on filedocumented in this encounter
--- OUTSIDE RECORDS SUMMARY | 2025-01-20 09:44 | XMS_ITS | Encounter Summary ---
Author Organization [facility] Facility Care Team Providers Care Visual Merchandise Manager Name Role Phone Junior Masters MD Primary Care Provider Encounter Details Date Type Department Care Team (Latest Contact Info) Description 03/24/2017 Orders Only [facility] CLINCONV ProviderWolf MD [address] [place] [address] Social History Tobacco Use Types Packs/Day Years Used Date Smoking Tobacco: Former Cigarettes Q uit: 05/18/1972 Alcohol Use Standard Drinks/Week Comments Yes 0 (1 standard drink = 0.6 oz pur e alcohol) Sex and Gender Information Value Date Recorded Sex Assigned at Not on file Legal Sex Male 9:17 PM COMPUTER SYSTEMS INTEGRATOR Gender Identity Not on file Sexual Orientation Not on file documented as of this encounter Plan of Treatment Not on file documented as of this encounter Procedures Procedure Name Priority Date/Time Associated Diagnosis Comments SCAN - LABS 04/22/2017 12:00 AM COMPUTER SYSTEMS INTEGRATOR documented in this encounter Results * SCAN - LABS (04/22/2017 12:00 AM COMPUTER SYSTEMS INTEGRATOR) Narrative 04/22/2017 12:00 AM COMPUTER SYSTEMS INTEGRATOR Ordered by an unspecified provider. Historical Provider Final Res ult documented in this encounter Visit Diagnoses Not on filedocumented in this encounter Care Teams Visual Merchandise Manager Relationship Specialty Start Date End Date Junior Masters MD PCP - General Family Medicine 11/03/18 documented as of this encounter
--- OUTSIDE RECORDS SUMMARY | 2025-01-20 09:44 | XMS_ITS | Encounter Summary ---
Author Organization [facility] Facility Care Team Providers Care Title Agent Name Role Phone Junior Masters MD Primary Care Provider [phone] Encounter Details Date Type Department Care Team (Latest Contact Info) Description 10/18/2017 Orders Only [facility] CLINCONV ProviderWolf MD [address] [place] [address] Social History Tobacco Use Types Packs/Day Years Used Date Smoking Tobacco: Former Cigarettes Q uit: 05/18/1972 Alcohol Use Standard Drinks/Week Comments Yes 0 (1 standard drink = 0.6 oz pur e alcohol) Sex and Gender Information Value Date Recorded Sex Assigned at Not on file 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
--- OUTSIDE RECORDS SUMMARY | 2025-01-20 09:44 | XMS_ITS | Encounter Summary ---
Author Organization [facility] Address [address] [place] [address] Care Team Providers Care Expediter Clerk Name Role Phone Unavailable Primary Care Provider Unavailabl e Encounter Details Date Type Department Care Team (Late st Contact Info) Description 11/16/2002 Outpatient Historical HIS PATIENT IN A BED Patricio Gould MD [address] [facility] [address] [place] [address] RECUR DISLOCAT-BRENDALDER (Primary Dx) Social History Tobacco Use Types Packs/Day Years Used Date Smoking Tobacco: Never Assessed Sex and Gender Information Value Date Recorded Sex Assigned at Not on file Legal Sex Male 3:19 AM SURGICAL ELASTIC KNITTER HAND FRAME Gender Identity Not on file Sexual Orientation Not on file documented as of this encounter Plan of Treatment Not on file documented as of this encounter Visit Diagnoses Diagnosis Recurrent dislocation of shoulder joint- Primary Recurrent dislocation of shoulder joint documented in this encounter
[2025-01-20 09:46] LABS: Alanine Aminotransferase 23 U/L (6-50); Albumin Level 4.2 g/dL (3.5-5.1); Alkaline Phosphatase 56 U/L (38-126); Anion Gap 7 mmol/L (4-12); Aspartate Amino Transferase 34 U/L (17-59); Bilirubin,Total 0.6 mg/dL (0.2-1.3); Blood Urea Nitrogen 14 mg/dL (9-20); Calcium 9.1 mg/dL (8.4-10.2); Carbon Dioxide 27 mmol/L (22-30); Chloride 104 mmol/L (98-107); Estimated CRCL calculation 84 ml/min; Estimated Glomerular Filt Rate > 60; Glucose 90 mg/dL (65-110); Potassium 4.0 mmol/L (3.4-5.0); Sodium 138 mmol/L (137-145); Total Protein 7.1 g/dL (6.3-8.2)
[2025-01-20 11:45] VITALS: BP 138/82; PULSE 70; RESP 16; TEMP 36.8; O2SAT 100
== END 2025-01-20 11:48 | disposition home or self-care (01) ==
PROVIDERS: Emergency Medicine; PCP Student in an Organized Health Care Education/Training Program
DX: R10.32 Left lower quadrant pain (principal); I10 Essential (primary) hypertension; K80.20 Calculus of gallbladder without cholecystitis without obstruction; K57.90 Diverticulosis of intestine, part unspecified, without perforation or abscess without bleeding; M47.816 Spondylosis without myelopathy or radiculopathy, lumbar region; M47.814 Spondylosis without myelopathy or radiculopathy, thoracic region
CPT/HCPCS: 36415; 74177; 80053; 81003; 85025; 85055; 99284; Q9967